=== PATIENT | male | born 1945 ===

== ENCOUNTER 2018-06-25 10:11 | Emergency (ER) | payer MEDICARE, MEDICAID ==
[2018-06-25] MEDS ORDERED: NS 0.9% 1000 ML* 1,000 ML IV ONE (10:38)
--- NOTE | 2018-06-25 10:50 | ED ---
Complex/Multi-Sys Presentation - HPI Summary HPI Summary: This is scribe Jose Angel Henderson documenting for attending Kirill Schwarz MD, MD. LEVEL 5 Caveat: Patient is alert but not oriented. Unresponsive to questions. This patient is a 73 year old M BIBA to [facility] with a chief complaint of back pain and neck pain. The ED report from the [facility] was that he isnt acting like himself. He has a PMHx of HIV, BPH, constipation, CAD, hypothyroidism, dementia, HTN, and Parkinsons. I, Dr. Schwarz, personally performed the services described in this documentation as scribed in my presence, and it is both accurate and complete. - History Of Current Complaint Chief Complaint: EDExtremityLower Hx Obtained From: EMS, Medical Records Hx From Patient Unobtainable Due To: Dementia Associated Signs And Symptoms: Positive: Back Pain, Other - Leg pain. "Isn't acting like himself." - Allergies/Home Medications Allergies/Adverse Reactions: Allergies Allergy/AdvReac Type Severity Reaction Status Date / Time bupropion [From Zyban] Allergy Unknown Verified 06/25/18 14:17 Reaction Details cyclobenzaprine Allergy Unknown Verified 06/25/18 14:17 [From Flexeril] Reaction Details Home Medications: Home Medications Acetaminophen [Acetaminophen Extra Strength] 1,000 mg PO TID 06/25/18 [History Confirmed 06/25/18] Amantadine CAP* [Symmetrel CAP*] 100 mg PO QPM 06/25/18 [History Confirmed 06/25] Amantadine CAP* [Symmetrel CAP*] 200 mg PO QAM 06/25/18 [History Confirmed 06/25] Aspirin EC TAB* [Ecotrin EC Low Dose 81 MG*] 81 mg PO DAILY 06/25/18 [History Confirmed 06/25/18] Baclofen TAB* [Lioresal TAB*] 10 mg PO BID 06/25/18 [History Confirmed 06/25/18] Carbidopa/Levodop 25/100 MG(*) [Sinemet 25/100 TAB(*)] 2.5 tab PO QPM 06/25/18 [ History Confirmed 06/25/18] Carbidopa/Levodop 25/100 MG(*) [Sinemet 25/100 TAB(*)] 3.5 tab PO 1200 06/25/18 [History Confirmed 06/25/18] Carbidopa/Levodop 25/100 MG(*) [Sinemet 25/100 TAB(*)] 3.5 tab PO 1700 06/25/18 [History Confirmed 06/25/18] Carbidopa/Levodop 25/100 MG(*) [Sinemet 25/100 TAB(*)] 4 tab PO QAM 06/25/18 [ History Confirmed 06/25/18] Cholecalciferol (Vitamin D3) [Vitamin D3] 2,000 unit PO QAM 06/25/18 [History Confirmed 06/25/18] Fenofibrate(NF) [Tricor(NF)] 145 mg PO QAM 06/25/18 [History Confirmed 06/25/18] Furosemide TAB* [Lasix TAB*] 20 mg PO QAM 06/25/18 [History Confirmed 06/25/18] Gabapentin CAP(*) [Neurontin 300 CAP(*)] 300 mg PO TID 06/25/18 [History Confirmed 06/25/18] Levothyroxine TAB* [Synthroid TAB*] 100 mcg PO QAM 06/25/18 [History Confirmed 06/25/18] Polyethylene Glycol 3350* [Miralax*] 17 gm PO DAILY 06/25/18 [History Confirmed 06/25/18] Raltegravir* [Isentress*] 400 mg PO BID 06/25/18 [History Confirmed 06/25/18] Senna/Docusate (NF) [Sennokot-S] 2 tab PO BID 06/25/18 [History Confirmed ] PMH/Surg Hx/FS Hx/Imm Hx Cardiovascular History: Reports: Hx Hypertension - CONTROL WITH MEDICATION GI History: Reports: Other GI Disorders - constipation History: Reports: Other Problems/Disorders Musculoskeletal History: Reports: Hx Arthritis, Hx Back Problems, Hx Orthopedic Injury - Rib fx, Other Musculoskeletal History - LEFT TOE PAIN,R/T NAIL GROWTH Sensory History: Reports: Hx Vision Problem - can't see well, Hx Hearing Aid - at home, Hx Hearing Problem Denies: Hx Contacts or Glasses, Hx Eye Injury, Hx Eye Prosthesis, Other Sensory Impairments Comment Only: Hx Cataracts - doesn't know, Hx Glaucoma - doesn't know, Hx Macular Degeneration - doesn't know Opthamlomology History: Reports: Hx Vision Problem - can't see well Denies: Hx Contacts or Glasses, Hx Eye Injury, Hx Eye Prosthesis, Other Sensory Impairments Comment Only: Hx Cataracts - doesn't know, Hx Glaucoma - doesn't know, Hx Macular Degeneration - doesn't know Neurological History: Reports: Other Neuro Impairments/Disorders - PARKINSONS - Surgical History Surgery Procedure, Year, and Place: 1985 BACK SURGERY, [facility]. Umbilical Hernia repair 2012 Hx Anesthesia Reactions: No Infectious Disease History: No Infectious Disease History: Reports: Hx Hepatitis - HEPATITIS C, Hx Human Immunodeficiency Virus (HIV) Denies: Hx Shingles, Hx Tuberculosis, Traveled Outside the [place] in Last 30 Days - Family History Known Family History: Positive: Unknown - Due to Level 5 Caveat: Dementia and unresponsive to questions. - Social History Alcohol Use: None Substance Use Type: Reports: None Smoking Status (MU): Unknown if Ever Smoked Review of Systems Positive: Other - Back pain and leg pain. Neurological: Other - "Isn't acting like himself" All Other Systems Reviewed And Are Negative: No Physical Exam - Summary Physical Exam Summary: LEVEL 5 CAVEAT: Completion of physical exam limited due to dementia and patient being unresponsive to questions. VITAL SIGNS: Reviewed. GENERAL: Patient is a well-developed and nourished elderly male MALE who is lying comfortable in the stretcher. Patient is not in any acute respiratory distress. HEAD AND FACE: No signs of trauma. No ecchymosis, hematomas or skull depressions. No sinus tenderness. EYES: PERRLA, EOMI x 2, No injected conjunctiva, no nystagmus. EARS: Hearing grossly intact. Ear canals and tympanic membranes are within normal limits. MOUTH: Mouth is dry. NECK: Supple, trachea is midline, no adenopathy, no JVD, no carotid bruit, no c- spine tenderness, neck with full ROM. CHEST: Symmetric, no tenderness at palpation LUNGS: Clear to auscultation bilaterally. No wheezing or crackles. CVS: Regular rate and rhythm, S1 and S2 present, no murmurs or gallops appreciated. ABDOMEN: Abdominal hernia that is not reducing. Pain grimaces when trying to reduce it. Hyperactive bowel sounds EXTREMITIES: FROM in all major joints, no edema, no cyanosis or clubbing. NEURO: Alert and non-oriented. Patient is non-verbal. SKIN: Dry and warm Triage Information Reviewed: Yes Vital Signs On Initial Exam: Initial Vitals Temp Pulse Resp BP Pulse Ox 98.8 F 50 18 161/75 96 06/25/18 10:15 06/25/18 10:15 06/25/18 10:15 06/25/18 10:15 06/25/18 10:15 Vital Signs Reviewed: Yes Diagnostics - Vital Signs Vital Signs Temp Pulse Resp BP Pulse Ox 06/25/18 10:15 98.8 F 50 18 161/75 96 - Laboratory Result Diagrams: 06/25/18 11:06 06/25/18 11:06 Lab Statement: Any lab studies that have been ordered have been reviewed, and results considered in the medical decision making process. - Radiology Abdomen X-Ray Radiology Interpretation Completed By: Radiologist - Taken at 11:52. NONSPECIFIC BOWEL GAS PATTERN. ED Physician has reviewed this imaging report. - CT Abdomen/Pelvis CT CT Interpretation Completed By: Radiologist - 14:25. 1. CHOLELITHIASIS. 2. FATTY INFILTRATION OF THE LIVER. ED Physician has reviewed this report. - EKG No standard instances Cardiac Rate: Bradycardia EKG Rhythm: Sinus Rhythm EKG Interpretation: Taken at 11:00. Diffuse ST abnormality. EKG unchanged from 04/02/2018. Complex Multi-Symp Course/Dx Assessment/Plan: This patient is a 73-year-old male who was transferred from [facility] with chief complaint the patient is not acting right, possibly back pain, possibly neck pain this information was given by EMS. There is no available packet from the [facility] in order to find out what was a complaint for the patient. The patient has Parkinsons disease and dementia and therefore he is unable to give any history at this point when I ask him if he has any pain in his hip abdominal pain and back pain. In the physical exam, it seems that the patient has a ventral hernia, and I tried to reduce it however I was not successful. At this time I contacted surgery, I spoke with Dr. Angela who requested a full workup including an abdominopelvic CT. I do not think that the patient would be able to drink the contrast swallow the contrast he has a protruding tongue and this will increase the risk for aspiration. Therefore, I would place an NG tube and give the contrast through the NG tube. I explained the patient the procedure of the NG tube however I don t think the patient understands. Abdominal x-ray impression: Nonspecific bowel gas pattern. Blood test results without any significant abnormality except for slight anemia, glucose 131, bilirubin 1.5. Urinalysis is negative for UTI. Abdomen x-ray impression: Nonspecific bowel gas pattern. Abdominopelvic CT impression: Cholelithiasis, fatty infiltration of the liver, 0.9 cm low attenuation is splenic lesion. This is likely incidental and is most likely at small cyst or cyst hemangioma. Atherosclerosis. Therefore she is a have not found any abnormality the patient will be transferred [facility]. Patient is hemodynamically stable alert and oriented 3. - Diagnoses Provider Diagnoses: Cholelithiasis, Fatty liver - Physician Notifications Discussed Care Of Patient With: Rogelio Angela - Surgery Time Discussed With Above Provider: 10:45 Instructed by Provider To: Other - Recommended a CAT scan Discharge - Sign-Out/Discharge Documenting (check all that apply): Patient Departure - D/C - Discharge Plan Condition: Stable Disposition: HOME Patient Education Materials: Biliary Colic (ED), Non-Alcoholic Fatty Liver Disease (ED) Referrals: Russell Beasley MD [Primary Care Provider] - 3 Days Additional Instructions: FOLLOW UP WITH YOUR PRIMARY CARE PROVIDER WITHIN ONE WEEK FOR HIGH BLOOD PRESSURE NOTED TODAY. RETURN TO THE ED FOR ANY WORSENING OR NEW SYMPTOMS. Consult Consult: Consulted with Cortney Snow N.P. from Surgery at 12:20. She does not think he has an incarcerated hernia.
[2018-06-25 11:28] LABS: ABS Basophils 0 10^3/ul (0-0.2); ABS Eosinophils 0 10^3/ul (0-0.6); ABS Lymphocytes 0.9 10^3/ul (1.0-4.8); ABS Monocytes 0.5 10^3/ul (0-0.8); ABS Neutrophils 3.2 10^3/ul (1.5-7.7); ABS Nucleated RBC 0 10^3/ul; Eosinophil % 0.3 % (0-6); Hematocrit 41 % (42-52); Hemoglobin 13.8 g/dl (14.0-18.0); Lymphocyte % 19.9 % (25-47); Mean Corpuscular HGB Conc 34 g/dl (31-36); Mean Corpuscular Hemoglobin 32 pg (27-31); Mean Corpuscular Volume 95 fL (80-94); Mean Platelet Volume 9.9 um3 (7.4-10.4); Nucleated Red Blood Cells % 0.1; Platelet Count 219 10^3/ul (150-450); Red Blood Count 4.29 10^6/ul (4.00-5.40); Red Cell Distribution Width 13 % (10.5-15); White Blood Count 4.7 10^3/ul (3.5-10.8)
[2018-06-25 11:51] LABS: EGFR Non-African American 62.6 (>60)
--- NOTE | 2018-06-25 11:55 | RAD ---
HISTORY: Abdominal pain COMPARISONS: None VIEWS: Frontal and left lateral decubitus views of the abdomen. FINDINGS: BOWEL: There is a nonspecific bowel gas pattern, with nondilated small bowel gas noted. A gastric tube is noted with the tip in a prepyloric position. CALCULI: There are no abnormal calculi. BONES AND SOFT TISSUES: There are no osseous abnormalities. OTHER FINDINGS: The lung bases are clear. There is no subphrenic gas. IMPRESSION: NONSPECIFIC BOWEL GAS PATTERN.
[2018-06-25] MEDS ORDERED: Iohexol 300* (CONTRAST) 10 ML SDV IV ONE (13:22)
[2018-06-25 14:04] LABS: Urine Appearance Clear; Urine Blood Negative (Negative); Urine Color Yellow; Urine Ketones Trace (Negative); Urine Protein Negative (Negative); Urine Specific Gravity 1.014 (1.010-1.030); Urine Urobilinogen Positive (Negative)
--- NOTE | 2018-06-25 14:29 | RAD ---
CLINICAL HISTORY: Abdominal pain COMPARISON: March 25, 2015 TECHNIQUE: Multiple contiguous axial CT scans were obtained of the abdomen and pelvis after the administration of intravenous contrast. Coronal and sagittal multiplanar reformations are submitted for review. Oral contrast was administered. Delayed images were obtained through the abdomen. FINDINGS: LUNG BASES: The lung bases are clear. LIVER: The liver is diffusely low in attenuation compared to the spleen. There are no focal hepatic parenchymal masses. BILE DUCTS: There is no intrahepatic or extrahepatic biliary dilatation. GALLBLADDER: Multiple gallstones are noted. There is no pericholecystic inflammatory change. PANCREAS: The pancreas is normal, without mass or ductal dilatation. SPLEEN: There is a low-attenuation lesion of the spleen superiorly. This measures 0.9 cm in size and is smoothly circumscribed. UPPER GI TRACT: Evaluation of the gastrointestinal tract is limited by incomplete gastric distention. There is a small sliding hiatal hernia. A gastric tube is noted with the tip in the stomach. SMALL BOWEL AND MESENTERY: The small bowel is normal in contour, course, and caliber. There is no obstruction or dilatation. COLON: The colon is normal in contour, course, caliber. There is no pericolonic inflammatory change. ADRENALS: Normal bilaterally. KIDNEYS: Simple renal cysts are noted bilaterally. BLADDER: The bladder is collapsed around a Griffith catheter PELVIC ORGANS: The prostate gland is normal. The seminal vesicles are symmetric. AORTA: There is calcific atherosclerotic disease of the abdominal aorta and its branches, without aneurysmal dilatation IVC: Unremarkable LYMPH NODES: There is no lymphadenopathy by size criteria. ABDOMINAL WALL: There is a fat-containing right inguinal hernia. 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 Mild degenerative changes are noted. OTHER: None IMPRESSION: 1. CHOLELITHIASIS. 2. FATTY INFILTRATION OF THE LIVER. 3. 0.9 CM LOW-ATTENUATION SPLENIC LESION. THIS IS LIKELY INCIDENTAL AND IS MOST LIKELY A SMALL CYST VERSUS HEMANGIOMA. 4. ATHEROSCLEROSIS.
[2018-06-25 18:11] VITALS: BP 176/97
== END 2018-06-25 18:12 | disposition home or self-care (01) ==
LOC: ED 10:11
DX: K80.20 Calculus of gallbladder without cholecystitis without obstruction (principal); K76.0 Fatty (change of) liver, not elsewhere classified; R00.1 Bradycardia, unspecified; G20 Parkinson's disease; F02.80 Dementia in other diseases classified elsewhere, unspecified severity, without behavioral disturbance, psychotic disturbance, mood disturbance, and anxiety; Z21 Asymptomatic human immunodeficiency virus [HIV] infection status; I25.10 Atherosclerotic heart disease of native coronary artery without angina pectoris; E03.9 Hypothyroidism, unspecified; I10 Essential (primary) hypertension; K44.9 Diaphragmatic hernia without obstruction or gangrene; N40.0 Benign prostatic hyperplasia without lower urinary tract symptoms; K59.00 Constipation, unspecified; Z79.899 Other long term (current) drug therapy; Z88.8 Allergy status to other drugs, medicaments and biological substances
CPT/HCPCS: 36415; 74019; 74177; 80053; 81003; 82140; 82150; 82550; 83605; 83690; 83735; 83880; 84484; 85025; 86140; 93005; 99284; Q9967

== ENCOUNTER 2018-07-07 02:54 | Inpatient (IN) | payer MEDICARE, MEDICAID ==
--- NOTE | 2018-07-07 03:21 | ED ---
Altered Mental Status - HPI Summary HPI Summary: 73 year old M BIB EMS from [facility] to [facility] complains of altered mental status since three hours ago. Symptoms aggravated by nothing. Symptoms alleviated by nothing. Patient is shakey and confused. retirement staff report that patient has had incontinence of bladder x3 days. Staff denies fever. - History Of Current Complaint Chief Complaint: EDAltMentalStatus Stated Complaint: AMS Time Seen by Provider: 07/07/18 03:06 Hx Obtained From: Other: - retirement staff Timing: Constant Character: Confusion Aggravating Factor(s): Nothing Alleviating Factor(s): Nothing - Allergies/Home Medications Allergies/Adverse Reactions: Allergies Allergy/AdvReac Type Severity Reaction Status Date / Time bupropion [From Zyban] Allergy Unknown Verified 06/25/18 14:17 Reaction Details cyclobenzaprine Allergy Unknown Verified 06/25/18 14:17 [From Flexeril] Reaction Details PMH/Surg Hx/FS Hx/Imm Hx Previously Healthy: No Endocrine/Hematology History: Denies: Hx Diabetes Cardiovascular History: Reports: Hx Hypertension - CONTROL WITH MEDICATION GI History: Reports: Other GI Disorders - constipation History: Reports: Other Problems/Disorders Musculoskeletal History: Reports: Hx Arthritis, Hx Back Problems, Hx Orthopedic Injury - Rib fx, Other Musculoskeletal History - LEFT TOE PAIN,R/T NAIL GROWTH Sensory History: Reports: Hx Vision Problem - can't see well, Hx Hearing Aid - at home, Hx Hearing Problem Denies: Hx Contacts or Glasses, Hx Eye Injury, Hx Eye Prosthesis, Other Sensory Impairments Comment Only: Hx Cataracts - doesn't know, Hx Glaucoma - doesn't know, Hx Macular Degeneration - doesn't know Opthamlomology History: Reports: Hx Vision Problem - can't see well Denies: Hx Contacts or Glasses, Hx Eye Injury, Hx Eye Prosthesis, Other Sensory Impairments Comment Only: Hx Cataracts - doesn't know, Hx Glaucoma - doesn't know, Hx Macular Degeneration - doesn't know Neurological History: Reports: Hx CVA, Hx Dementia, Other Neuro Impairments/ Disorders - PARKINSONS Psychiatric History: Reports: Hx Depression - Surgical History Surgery Procedure, Year, and Place: 1985 BACK SURGERY, [facility]. Umbilical Hernia repair 2011 Hx Anesthesia Reactions: No Infectious Disease History: Yes Infectious Disease History: Reports: Hx Hepatitis - HEPATITIS C, Hx Human Immunodeficiency Virus (HIV) Denies: Hx Shingles, Hx Tuberculosis, Traveled Outside the [place] in Last 30 Days - Family History Known Family History: Negative: Cardiac Disease, Hypertension - Social History Alcohol Use: None Hx Substance Use: No Substance Use Type: Reports: None Hx Tobacco Use: No Smoking Status (MU): Unknown if Ever Smoked Review of Systems Positive: Other - Shakes. Negative: Fever Positive: incontinence - x3 days Neurological: Other - AMS, confusion All Other Systems Reviewed And Are Negative: Yes Physical Exam - Summary Physical Exam Summary: Appearance: Chronically-ill appearing. He has resting tremor with upper extremity Skin: Warm, dry, no obvious rash Eyes: sclera anicteric, no conjunctival pallor ENT: mucous membranes moist Neck: deferred Respiratory: No signs of respiratory distress Cardiovascular: Appears well perfused, pulses are nml Abdomen: deferred Musculoskeletal: Moving all 4 extremities without obvious discomfort Neurological: He is confused, disoriented. Speech is slurred Psychiatric: affect is normal, does not appear anxious or depressed Triage Information Reviewed: Yes Vital Signs On Initial Exam: Initial Vitals Pulse Resp BP Pulse Ox 107 34 142/94 96 07/07/18 02:57 07/07/18 02:57 07/07/18 02:57 07/07/18 02:57 Vital Signs Reviewed: Yes Diagnostics - Vital Signs Vital Signs Temp Pulse Resp BP Pulse Ox 07/07/18 03:03 101 F 106 20 142/94 98 07/07/18 03:00 105 31 96 07/07/18 02:57 107 34 142/94 96 - Laboratory Result Diagrams: 07/07/18 07:47 07/07/18 11:05 Lab Statement: Any lab studies that have been ordered have been reviewed, and results considered in the medical decision making process. - Radiology CXR Radiology Interpretation Completed By: ED Physician - Suspect left lower lobe infiltrate. There is loss of left hemidiaphragm. There is increased capacity in the retrocardio area. Pending official report. - EKG 0350 Cardiac Rate: Tachycardia - 104 BPM EKG Rhythm: Sinus Tachycardia Altered Mental Statu Course/Dx - Diagnoses Provider Diagnoses: Altered mental status - Provider Notifications Discussed Care Of Patient With: Porfirio Temple Time Discussed With Above Provider: 05:04 Instructed by Provider To: Other - Dr. Temple, hospitalist, agrees to admit patient. Discharge - Sign-Out/Discharge Documenting (check all that apply): Patient Departure - Admit - Discharge Plan Condition: Guarded Disposition: ADMITTED TO [facility] - Billing Disposition and Condition Condition: GUARDED Disposition: Admitted to [facility] - Attestation Statements Document Initiated by Stacyibe: Yes Documenting Scribe: Jami Lagunas Provider For Whom Liane is Documenting (Include Credential): Giovanni Nelson MD Scribe Attestation: IJami, scribed for Giovanni Nelson MD on 07/08/18 at 0214. Scribe Documentation Reviewed: Yes Provider Attestation: The documentation as recorded by the Jami kramer accurately reflects the service I personally performed and the decisions made by me, Giovanni Nelson MD
[2018-07-07 04:17] LABS: ABS Basophils 0 10^3/ul (0-0.2); ABS Eosinophils 0 10^3/ul (0-0.6); ABS Lymphocytes 0.3 10^3/ul (1.0-4.8); ABS Monocytes 0.8 10^3/ul (0-0.8); ABS Neutrophils 12.1 10^3/ul (1.5-7.7); ABS Nucleated RBC 0 10^3/ul; Eosinophil % 0 % (0-6); Hematocrit 37 % (42-52); Hemoglobin 12.5 g/dl (14.0-18.0); Mean Corpuscular HGB Conc 34 g/dl (31-36); Mean Corpuscular Hemoglobin 32 pg (27-31); Mean Corpuscular Volume 92 fL (80-94); Mean Platelet Volume 9.3 um3 (7.4-10.4); Nucleated Red Blood Cells % 0.1; Platelet Count 250 10^3/ul (150-450); Red Blood Count 3.98 10^6/ul (4.00-5.40); Red Cell Distribution Width 14 % (10.5-15); White Blood Count 13.2 10^3/ul (3.5-10.8)
[2018-07-07 04:34] LABS: EGFR Non-African American 34.7 (>60)
[2018-07-07] MEDS ORDERED: cefTRIAXone(*) 1 GM in NS 0.9% 50 ML* 50 ML IVPB ONE (05:04)
[2018-07-07] MEDS ORDERED: Azithromycin IV(*) 500 MG in NS 0.9% 250 ML* 250 ML IVPB ONE (05:04)
[2018-07-07] MEDS ORDERED: NS 0.9% 1000 ML* 700 ML IV ONE (05:15)
[2018-07-07] MEDS: NS 0.9% 1000 ML* 2,000 ML IV ONE ×2 (05:17→11:32)
[2018-07-07] MEDS ORDERED: Melatonin 3 MG TAB PO PRN (05:28)
[2018-07-07] MEDS ORDERED: Ondansetron ODT TAB* 4 MG PO PRN (05:28)
[2018-07-07] MEDS ORDERED: Acetaminophen TAB* 325 MG PO PRN (05:28)
--- NOTE | 2018-07-07 05:32 | HP ---
H&P (Free Text) History and Physical: PCP: Isra Beasley MD Date/Time: 07/07/2018 0500 CC: fever HPI: Mr Amaro is a 73YO male [facility] [place] resident HX HIV, hepatitis C, CAD, CVA, Parkinsonism, HTN, hypertriglyceridemia, hypothyroidism, & PUD who presents AMS/ confusion & fever. Upon my evaluation, he is unable to give a HX and his baseline is uncertain. When asked questions, he raised both hands, flapped his wrists, and made incoherent verbalizations. He appeared in no pain or overt distress. CXR shows a LLL infiltrate. WBCs are 13k. His is tachycardic and tachypneic w/o accessory muscle use or significant work of breathing. PMedHx HIV hepatitis C CAD CVA w/ reportedly chronic R facial droop Parkinsonism HTN hypertriglyceridemia hypothyroidism PUD Ambulatory Orders Tenofovir/Emtricitab 200/300 * [Truvada*] 1 tab PO QAM 10/15/12 Acetaminophen [Acetaminophen Extra Strength] 1,000 mg PO TID 06/25/18 Amantadine CAP* [Symmetrel CAP*] 200 mg PO QAM 06/25/18 Aspirin EC TAB* [Ecotrin EC Low Dose 81 MG*] 81 mg PO DAILY 06/25/18 Baclofen TAB* [Lioresal TAB*] 10 mg PO BID 06/25/18 Carbidopa/Levodop 25/100 MG(*) [Sinemet 25/100 TAB(*)] 2.5 tab PO QPM 06/25/18 Carbidopa/Levodop 25/100 MG(*) [Sinemet 25/100 TAB(*)] 3.5 tab PO 1200 06/25/18 Carbidopa/Levodop 25/100 MG(*) [Sinemet 25/100 TAB(*)] 3.5 tab PO 1700 06/25/18 Carbidopa/Levodop 25/100 MG(*) [Sinemet 25/100 TAB(*)] 4 tab PO QAM 06/25/18 Cholecalciferol (Vitamin D3) [Vitamin D3] 2,000 unit PO QAM 06/25/18 Fenofibrate(NF) [Tricor(NF)] 145 mg PO QAM 06/25/18 Furosemide TAB* [Lasix TAB*] 20 mg PO QAM 06/25/18 Gabapentin CAP(*) [Neurontin 300 CAP(*)] 300 mg PO TID 06/25/18 Levothyroxine TAB* [Synthroid TAB*] 100 mcg PO QAM 06/25/18 Polyethylene Glycol 3350* [Miralax*] 17 gm PO DAILY 06/25/18 Raltegravir* [Isentress*] 400 mg PO BID 06/25/18 Senna/Docusate (NF) [Sennokot-S] 2 tab PO BID 06/25/18 Allergies bupropion [From Zyban] Allergy (Verified 06/25/18 14:17) Unknown Reaction Details cyclobenzaprine [From Flexeril] Allergy (Verified 06/25/18 14:17) Unknown Reaction Details SocHx: former smoker, no alcohol or recreational drugs; resides at [facility]; FamHx: per records: negative for DM, CAD, CVA, & cancer ROS: as above, otherwise reviewed and all were negative vitals: Vital Signs Temp 38.3 C 07/07/18 03:03 Pulse 105 07/07/18 04:28 Resp 27 07/07/18 04:28 BP 148/116 07/07/18 04:28 Pulse Ox 100 07/07/18 04:28 Intake & Output 07/06/18 07/06/18 07/07/18 11:59 23:59 11:59 Weight 90.718 kg Constitutional: NAD, normally developed, overweight male HEENM: atraumatic; sclera/conjunctiva: anicteric/mildly injected OU; hearing: unable to adequately assess; oropharynx: clear, mucosa tacky Neck: soft tissue: no nuchal rigidity; thyroid: normal Pulmonary: diminished L base with scant end-expiratory crackle, fair aeration, no accessory muscle use CV: RR/RR, normal S1S2, no carotid bruit, no jugular venous distention, 2+ B DP/ PT, no edema Abdominal: soft, non-distended, non-tender, no rebound/guarding/rigidity, normoactive bowel sounds, no hepatosplenomegaly or masses, no costovertebral angle tenderness Musculoskeletal: general: grossly intact, non-tender Integumental: normal appearance and texture of exposed skin Psychiatric orientation: alert & awake, unable to accurately determine orientation affect: fatigued mood: cooperative eye contact: fair content: incoherent ? baseline responses: timely insight: unable to assess Testing: Lab Results 07/07/18 07/07/18 07/07/18 Range/Units 04:10 04:10 04:10 WBC 13.2 H (3.5-10.8) 10^3/ul RBC 3.98 L (4.00-5.40) 10^6/ul Hgb 12.5 L (14.0-18.0) g/dl Hct 37 L (42-52) % MCV 92 (80-94) fL MCH 32 H (27-31) pg MCHC 34 (31-36) g/dl RDW 14 (10.5-15) % Plt Count 250 (150-450) 10^3/ul MPV 9.3 (7.4-10.4) um3 Neut % (Auto) 91.9 H (38-83) % Lymph % (Auto) 2.0 L (25-47) % Clay % (Auto) 5.9 (0-7) % Eos % (Auto) 0 (0-6) % Baso % (Auto) 0.2 (0-2) % Absolute Neuts (auto) 12.1 H (1.5-7.7) 10^3/ul Absolute Lymphs (auto) 0.3 L (1.0-4.8) 10^3/ul Absolute Monos (auto) 0.8 (0-0.8) 10^3/ul Absolute Eos (auto) 0 (0-0.6) 10^3/ul Absolute Basos (auto) 0 (0-0.2) 10^3/ul Absolute Nucleated RBC 0 10^3/ul Nucleated RBC % 0.1 Sodium 143 (135-145) mmol/L Potassium 3.3 L (3.5-5.0) mmol/L Chloride 102 (101-111) mmol/L Carbon Dioxide 30 (22-32) mmol/L Anion Gap 11 (2-11) mmol/L BUN 35 H (6-24) mg/dL Creatinine 1.90 H (0.67-1.17) mg/dL Est GFR ( Amer) 42.0 (>60) Est GFR (Non-Af Amer) 34.7 (>60) BUN/Creatinine Ratio 18.4 (8-20) Glucose 133 H (70-100) mg/dL Lactic Acid 1.8 (0.5-2.0) mmol/L Calcium 11.5 H (8.6-10.3) mg/dL Total Bilirubin 1.30 H (0.2-1.0) mg/dL AST 9 L (13-39) U/L ALT 3 L (7-52) U/L Alkaline Phosphatase 87 (34-104) U/L Troponin I 0.03 (<0.04) ng/mL Total Protein 8.2 (6.4-8.9) g/dL Albumin 3.9 (3.2-5.2) g/dL Globulin 4.3 H (2-4) g/dL Albumin/Globulin Ratio 0.9 L (1-3) Procalcitonin (<0.6) ng/mL 07/07/18 Range/Units 04:10 WBC (3.5-10.8) 10^3/ul RBC (4.00-5.40) 10^6/ul Hgb (14.0-18.0) g/dl Hct (42-52) % MCV (80-94) fL MCH (27-31) pg MCHC (31-36) g/dl RDW (10.5-15) % Plt Count (150-450) 10^3/ul MPV (7.4-10.4) um3 Neut % (Auto) (38-83) % Lymph % (Auto) (25-47) % Clay % (Auto) (0-7) % Eos % (Auto) (0-6) % Baso % (Auto) (0-2) % Absolute Neuts (auto) (1.5-7.7) 10^3/ul Absolute Lymphs (auto) (1.0-4.8) 10^3/ul Absolute Monos (auto) (0-0.8) 10^3/ul Absolute Eos (auto) (0-0.6) 10^3/ul Absolute Basos (auto) (0-0.2) 10^3/ul Absolute Nucleated RBC 10^3/ul Nucleated RBC % Sodium (135-145) mmol/L Potassium (3.5-5.0) mmol/L Chloride (101-111) mmol/L Carbon Dioxide (22-32) mmol/L Anion Gap (2-11) mmol/L BUN (6-24) mg/dL Creatinine (0.67-1.17) mg/dL Est GFR ( Amer) (>60) Est GFR (Non-Af Amer) (>60) BUN/Creatinine Ratio (8-20) Glucose (70-100) mg/dL Lactic Acid (0.5-2.0) mmol/L Calcium (8.6-10.3) mg/dL Total Bilirubin (0.2-1.0) mg/dL AST (13-39) U/L ALT (7-52) U/L Alkaline Phosphatase (34-104) U/L Troponin I (<0.04) ng/mL Total Protein (6.4-8.9) g/dL Albumin (3.2-5.2) g/dL Globulin (2-4) g/dL Albumin/Globulin Ratio (1-3) Procalcitonin 12.7 H (<0.6) ng/mL ECG, personally reviewed: sinus tachycardia rate 104, ST depressions V3-6 & I, diffuse T-wave inversions; new compared to 06/25/2018 CXR, personally reviewed: LLL infiltrate Impression: 73M HX HIV, hepatitis C, CAD, CVA, Parkinsonism, HTN, hypertriglyceridemia, hypothyroidism, & PUD presents from [facility] [place] with severe sepsis (fever, leukocytosis, tachypnea, tachycardia, & RENETTA) 2nd LLL pneumonia DIAGNOSIS & PLAN Primary severe sepsis (fever, leukocytosis, tachypnea, tachycardia, & RENETTA) 2nd LLL pneumonia : IV azithromycin & ceftriaxone : IVFs NS 30mg/kg followed by 85cc/hr LR : blood & sputum CXs : 0 & 6h procalcitonin : awaiting UA : supplemental oxygen : supportive care Secondary HIV : continue tenofovir/emtricitab & raltegravir hepatitis C CAD : continue aspirin HX CVA : continue aspirin Parkinsonism : continue amantadine & carbi/levodopa HTN : trend, hold furosemide hypertriglyceridemia : continue fenofibrate hypothyroidism : continue levothyroxine PUD : omeprazole Admission Rational: Inpatient as without the above interventions the risk of impending adverse outcome is unacceptably high; inappropriate for the outpatient setting DVTp: SCDs & heparin SQ Code Status: HCP: sonRuss [phone] Critical Care time: 55minutes with >50% spent at the bedside obtaining a history , performing the examination, advising of diagnosis & treatment options along with risks/benefits/reasoning; remainder spent discussing with ER MD, reviewing labs and radiology exams
[2018-07-07] MEDS ORDERED: NS 0.9% 1000 ML* 1,000 ML IV ONE (07:48)
[2018-07-07 08:12] LABS: ABS Basophils 0 10^3/ul (0-0.2); ABS Eosinophils 0 10^3/ul (0-0.6); ABS Lymphocytes 0.4 10^3/ul (1.0-4.8); ABS Monocytes 0.5 10^3/ul (0-0.8); ABS Neutrophils 10.4 10^3/ul (1.5-7.7); ABS Nucleated RBC 0 10^3/ul; Eosinophil % 0 % (0-6); Hematocrit 37 % (42-52); Hemoglobin 12.3 g/dl (14.0-18.0); Lymphocyte % 3.4 % (25-47); Mean Corpuscular HGB Conc 33 g/dl (31-36); Mean Corpuscular Hemoglobin 32 pg (27-31); Mean Corpuscular Volume 95 fL (80-94); Mean Platelet Volume 9.9 um3 (7.4-10.4); Nucleated Red Blood Cells % 0; Platelet Count 263 10^3/ul (150-450); Red Blood Count 3.89 10^6/ul (4.00-5.40); Red Cell Distribution Width 14 % (10.5-15); White Blood Count 11.3 10^3/ul (3.5-10.8)
[2018-07-07 08:17] LABS: INR 1.28 (0.77-1.02)
[2018-07-07] MEDS ORDERED: Vancomycin per Pharmacy* NOTE FOLLOW UP PRN (08:32)
[2018-07-07] MEDS ORDERED: NS 0.9% 1000 ML* 2,000 ML IV ONE (08:33)
--- NOTE | 2018-07-07 08:33 | PN ---
Sepsis Event Evaluation Date of Evaluation: 07/07/18 Time of Evaluation: 08:28 Current Stage of Sepsis: Severe Sepsis Vital Signs - Last 12 Hours: Vital Signs - 12 hr Temp Pulse Resp BP Pulse Ox 07/07/18 06:28 103 164/113 100 07/07/18 06:00 100 21 100 07/07/18 05:58 100 21 179/115 100 07/07/18 05:28 101 21 172/114 99 07/07/18 05:00 107 25 100 07/07/18 04:58 106 22 151/127 100 07/07/18 04:28 105 27 148/116 100 07/07/18 04:00 103 20 100 07/07/18 03:58 103 18 136/93 99 07/07/18 03:27 116 21 142/105 79 07/07/18 03:03 101 F 106 20 142/94 98 07/07/18 03:00 105 31 96 07/07/18 02:57 107 34 142/94 96 Lactic Acid: 07/07/18 04:10 Lactic Acid 1.8 - Cardiopulmonary Exam Capillary Refill: Immediate Respiratory: Symmetrical Chest Expansion and Respiratory Effort Cardiovascular: NL Sounds; No Murmurs; No JVD - Peripheral Pulse Exam Radial Pulses: Bilateral Normal Pedal Pulses: Bilateral Normal Posterior Tibial Pulse: Bilateral Normal Femoral Pulses: Bilateral Normal Popliteal Pulses: Bilateral Normal - Skin Exam Skin Exam: Normal Turgor - Myla Coma Scale Best Eye Response: 3 - To Speech Best Motor Response: 5 - Purposeful Movement Best Verbal Response: 4 - Confused Coma Scale Total: 12 Assess/Plan/Problems-Billing Assessment: Status and Disposition: 73 year old man with pneumonia and severe sepsis. Lactic acid initially normal, then at 830 AM patient found to deteriorate despite receiving antibiotics, fluids, etc. HR > 130; RR ~ 40 --> urgent transfer to ICU done patient appearing more stable, but lactic acid now > 6... Repeat 2L bolus and repeat lactic acid in 3 hours. Added vancomycin to antibiotic regimen cultures drawn and pending see above for sepsis related PE and considerations. following closely. .
[2018-07-07 08:34] LABS: EGFR Non-African American 37.9 (>60)
--- NOTE | 2018-07-07 08:37 | PN ---
Sepsis Event Evaluation Date of Evaluation: 07/07/18 Time of Evaluation: 11:00 Current Stage of Sepsis: Severe Sepsis Vital Signs - Last 12 Hours: Vital Signs - 12 hr Temp Pulse Resp BP Pulse Ox 07/07/18 06:28 103 164/113 100 07/07/18 06:00 100 21 100 07/07/18 05:58 100 21 179/115 100 07/07/18 05:28 101 21 172/114 99 07/07/18 05:00 107 25 100 07/07/18 04:58 106 22 151/127 100 07/07/18 04:28 105 27 148/116 100 07/07/18 04:00 103 20 100 07/07/18 03:58 103 18 136/93 99 07/07/18 03:27 116 21 142/105 79 07/07/18 03:03 101 F 106 20 142/94 98 07/07/18 03:00 105 31 96 07/07/18 02:57 107 34 142/94 96 Lactic Acid: 07/07/18 04:10 Lactic Acid 1.8 - Cardiopulmonary Exam Capillary Refill: Immediate Respiratory: Symmetrical Chest Expansion and Respiratory Effort, - - tyachypnea noted Cardiovascular: NL Sounds; No Murmurs; No JVD - Peripheral Pulse Exam Radial Pulses: Bilateral Normal Pedal Pulses: Bilateral Normal Posterior Tibial Pulse: Bilateral Normal Femoral Pulses: Bilateral Normal Popliteal Pulses: Bilateral Normal - Skin Exam Skin Exam: Normal Turgor - Myla Coma Scale Best Eye Response: 4 - Spontaneous Best Motor Response: 4 - Withdraws Best Verbal Response: 4 - Confused Coma Scale Total: 12 Assess/Plan/Problems-Billing . Assessment: 73 yo man with LLL S. Pneumo pneumonia and resultant severe sepsis Status and Disposition: 73 year old man with pneumonia and severe sepsis. Lactic acid initially normal, then at 830 AM patient found to deteriorate despite receiving antibiotics, fluids, etc. HR > 130; RR ~ 40 --> urgent transfer to ICU ; lactic acid was > 6... Repeated 2L bolus and repeat lactic acid was NORMAL. IV metoprolol given for hypertension and tachycardia and patient appears MUCH improved with RR < 20 and HR ~ 60-70 Added vancomycin to antibiotic regimen cultures drawn and still pending see above for sepsis related PE and considerations. following closely. .
[2018-07-07] MEDS ORDERED: Metoprolol Tartrate IV* 1 MG/ML 5 ML VIAL IV STA (08:52)
[2018-07-07] MEDS ORDERED: Morphine INJ* 2 MG/ML 1 ML SYRINGE (TWO MG - NEW SYRINGE VERSION) IV STA (08:53)
[2018-07-07] MEDS ORDERED: Vancomycin(*) 1,000 MG in NS 0.9% 250 ML* 250 ML IVPB ONE (09:00)
[2018-07-07] MEDS: Heparin VIAL(*) 5000 UNITS/ML VIAL (FIVE THOUSAND) SUBCUT SCH ×3 (09:22→21:20)
[2018-07-07] MEDS: Levothyroxine TAB* 100 MCG TAB PO SCH (10:06)
[2018-07-07] MEDS: Omeprazole CAP* 20 MG PO SCH (10:06)
[2018-07-07] MEDS: Amantadine CAP* 100 MG PO SCH (10:06)
[2018-07-07] MEDS: Carbidopa/Levodop 25/100 MG TAB(*) PO SCH ×3 (10:07→17:27)
[2018-07-07] MEDS: Baclofen TAB* 10 MG PO SCH ×2 (10:07→20:36)
[2018-07-07] MEDS: Polyethylene Glycol 3350* 17 GM PACKET PO SCH (10:07)
[2018-07-07] MEDS: Aspirin EC TAB* 81 MG TAB.EC PO SCH (10:07)
[2018-07-07] MEDS: Tenofovir/Emtricitab 200/300 * TAB PO SCH (10:07)
[2018-07-07] MEDS: Raltegravir* 400 MG TAB PO SCH ×2 (10:07→20:37)
[2018-07-07] MEDS: Docusate CAP* 100 MG PO SCH ×2 (10:07→20:36)
[2018-07-07] MEDS: CMC:Fenofibrate(NF) 145 MG TAB PO SCH (10:07)
[2018-07-07] MEDS: Gabapentin CAP(*) 300 MG PO SCH ×3 (10:07→20:37)
[2018-07-07] MEDS: Senna TAB PO SCH ×2 (10:07→20:37)
--- NOTE | 2018-07-07 11:27 | RAD ---
Indication: Fever. Altered mental status. Comparison: June 25, [address] and April 02, 2015 chest radiograph. Technique: Upright AP 0445 hours Report: Alveolar consolidation at the LEFT lung base with partial obscuration of the LEFT diaphragm and heart margin. Potential small LEFT pleural effusion. Upper normal heart size accounting for leftward rotation. Unremarkable mediastinal contours and central pulmonary vasculature accounting for leftward rotation. IMPRESSION: #. LEFT basilar airspace consolidation concerning for pneumonia. R0
[2018-07-07 14:26] LABS: Urine Red Blood Cell 3+(>10/hpf) (Absent); Urine White Blood Cell 3+(>20/hpf) (Absent)
[2018-07-07 14:27] LABS: Urine Color Red
[2018-07-07 14:28] LABS: Urine Appearance Cloudy
[2018-07-07 14:30] LABS: Urine Specific Gravity 1.017 (1.010-1.030)
[2018-07-07 14:35] LABS: EGFR Non-African American 44.9 (>60)
[2018-07-07] MEDS: Vancomycin(*) 1,000 MG in NS 0.9% 250 ML* 250 ML IVPB SCH (17:31)
[2018-07-07] MEDS ORDERED: Carbidopa/Levodop 25/100 MG TAB(*) PO SCH (18:00)
[2018-07-07] MEDS ORDERED: Piperacillin/Tazobac ADVAN(*) 3.375 GM in NS 0.9% 100 ML* 100 ML IVPB ONE (18:23)
[2018-07-07] MEDS ORDERED: Zosyn per Pharmacy* NOTE FOLLOW UP SCH (19:00)
[2018-07-07] MEDS: Morphine INJ* 2 MG/ML 1 ML SYRINGE (TWO MG - NEW SYRINGE VERSION) IV PRN (22:34)
[2018-07-07] MEDS: ZOSYN 3.375 GM Q8H per EXTENDED INFUSION IVPB SCH ×2 (23:49)
[2018-07-08] MEDS: Morphine INJ* 2 MG/ML 1 ML SYRINGE (TWO MG - NEW SYRINGE VERSION) IV PRN (04:37)
[2018-07-08] MEDS ORDERED: cefTRIAXone VIAL(*) 1,000 MG in NS 0.9% 50 ML* 50 ML IVPB SCH (05:00)
[2018-07-08] MEDS: Acetaminophen SUPP* 650 MG SUPP PR PRN (05:02)
[2018-07-08] MEDS: Azithromycin IV(*) 500 MG in NS 0.9% 250 ML* 250 ML IVPB SCH (05:02)
[2018-07-08 05:57] LABS: EGFR Non-African American 51.1 (>60)
[2018-07-08] MEDS: Heparin VIAL(*) 5000 UNITS/ML VIAL (FIVE THOUSAND) SUBCUT SCH ×3 (06:08→21:32)
[2018-07-08] MEDS: Vancomycin(*) 1,000 MG in NS 0.9% 250 ML* 250 ML IVPB SCH ×2 (06:08→17:15)
[2018-07-08] MEDS: Levothyroxine TAB* 100 MCG TAB PO SCH (06:11)
[2018-07-08] MEDS: Omeprazole CAP* 20 MG PO SCH (06:11)
[2018-07-08] MEDS: ZOSYN 3.375 GM Q8H per EXTENDED INFUSION IVPB SCH ×4 (08:11→16:08)
[2018-07-08] MEDS: Baclofen TAB* 10 MG PO SCH ×2 (09:04→21:32)
[2018-07-08] MEDS: Aspirin EC TAB* 81 MG TAB.EC PO SCH (09:04)
[2018-07-08] MEDS: Amantadine CAP* 100 MG PO SCH (09:04)
[2018-07-08] MEDS: Gabapentin CAP(*) 300 MG PO SCH ×3 (09:04→21:31)
[2018-07-08] MEDS: Carbidopa/Levodop 25/100 MG TAB(*) PO SCH ×4 (09:04→21:30)
[2018-07-08] MEDS: Docusate CAP* 100 MG PO SCH ×2 (09:05→21:32)
[2018-07-08] MEDS: Raltegravir* 400 MG TAB PO SCH ×2 (09:06→21:41)
[2018-07-08] MEDS: CMC:Fenofibrate(NF) 145 MG TAB PO SCH (09:06)
[2018-07-08] MEDS: Polyethylene Glycol 3350* 17 GM PACKET PO SCH (09:06)
[2018-07-08] MEDS: Tenofovir/Emtricitab 200/300 * TAB PO SCH (09:07)
[2018-07-08] MEDS: Senna TAB PO SCH ×2 (09:07→21:38)
--- NOTE | 2018-07-08 15:54 | PN ---
Subjective Date of Service: 07/08/18 Interval History: Pt seen and examined. Meds and labs reviewed. CC: Fever per nursing staff ROS: Could not be reliably obtained PHYSICAL EXAM: GEN APPEARANCE: Awake, not in acute distress, non-verbal, but nods head appropriately to confirm HEENT: NC/AT, PERRLA, moist oral mucosa, (-) throat erythema NECK: Soft, supple, (-) cervical LAD, (-)JVD HEART: S1S2 WNL, RRR, No MRG CHEST: CTA, BL, GAE, No W/R/R ABD: Soft, ND/NT, NABS 4x Q EXT: No C/C/E SKIN: Warm to touch PSYCH: No active psychosis, hallucinations, depression, SI/HI Objective Active Medications: Acetaminophen (Tylenol Supp*) 650 mg OR Q6H PRN PRN Reason: FEVER/PAIN Last Admin: 07/08/18 05:02 Dose: 650 mg Amantadine HCl (Symmetrel Cap*) 200 mg PO QAM [facility] Last Admin: 07/08/18 09:04 Dose: 200 mg Aspirin (Aspirin Ec Tab*) 81 mg PO DAILY [facility] Last Admin: 07/08/18 09:04 Dose: 81 mg Baclofen (Lioresal Tab*) 10 mg PO BID [facility] Last Admin: 07/08/18 09:04 Dose: 10 mg Carbidopa/Levodopa (Sinemet 25/100 Tab(*)) 2.5 tab PO QPM [facility] Last Admin: 07/07/18 17:28 Dose: Not Given Carbidopa/Levodopa (Sinemet 25/100 Tab(*)) 3.5 tab PO 1200 [facility] Last Admin: 07/08/18 13:13 Dose: 3.5 tab Carbidopa/Levodopa (Sinemet 25/100 Tab(*)) 3.5 tab PO 1700 [facility] Last Admin: 07/07/18 17:27 Dose: Not Given Carbidopa/Levodopa (Sinemet 25/100 Tab(*)) 4 tab PO QAM [facility] Last Admin: 07/08/18 09:04 Dose: 4 tab Docusate Sodium (Colace Cap*) 200 mg PO BID [facility] Last Admin: 07/08/18 09:05 Dose: Not Given Emtricitabine/Tenofovir (Truvada 200/300 Mg*) 1 tab PO QAM [facility]; Protocol Last Admin: 07/08/18 09:07 Dose: 1 tab Fenofibrate (Tricor(Nf)) 145 mg PO QAM [facility]; Protocol Last Admin: 07/08/18 09:06 Dose: 145 mg Gabapentin (Neurontin Cap(*)) 300 mg PO TID [facility] Last Admin: 07/08/18 13:13 Dose: 300 mg Heparin Sodium (Porcine) (Heparin Vial(*)) 5,000 units SUBCUT Q12H [facility] Lactated Ringer's (Lactated Ringers 1000 Ml Bag*) 1,000 mls @ 85 mls/hr IV PER RATE [facility] Last Admin: 07/08/18 00:49 Dose: 85 mls/hr Azithromycin 500 mg/ Sodium (Chloride) 250 mls @ 250 mls/hr IVPB Q24H [facility] Last Admin: 07/08/18 05:02 Dose: 250 mls/hr Vancomycin HCl 1,000 mg/ (Sodium Chloride) 250 mls @ 166.667 mls/hr IVPB Q12H [facility] Last Admin: 07/08/18 06:08 Dose: 166.667 mls/hr Piperacillin Sod/Tazobactam (Sod 3.375 gm/ Sodium Chloride) 100 mls @ 25 mls/ hr IVPB Q8H [facility] Last Admin: 07/08/18 08:11 Dose: 25 mls/hr Levothyroxine Sodium (Synthroid Tab*) 100 mcg PO 0600 [facility] Last Admin: 07/08/18 06:11 Dose: Not Given Melatonin (Melatonin) 3 mg PO BEDTIME PRN; Protocol PRN Reason: Sleep Morphine Sulfate (Morphine Inj ((Syringe))*) 2 mg IV Q3H PRN PRN Reason: SOB/air hunger Last Admin: 07/08/18 04:37 Dose: 2 mg Omeprazole (Prilosec Cap*) 20 mg PO DAILY@0600 [facility] Last Admin: 07/08/18 06:11 Dose: Not Given Ondansetron HCl (Zofran Odt Tab*) 4 mg PO Q6H PRN PRN Reason: n/v Pharmacy Consult (Vancomycin Per Pharmacy*) 1 note FOLLOW UP . PRN PRN Reason: PER PROTOCOL Pharmacy Consult (Zosyn Per Pharmacy*) 1 note FOLLOW UP .ZOSYN PER PHARMACY [facility] Pharmacy Profile Note (Vancomycin Trough Check) 1 note FOLLOW UP 729 ONE Stop: 07/09/18 07:31 Polyethylene Glycol/Electrolytes (Miralax*) 17 gm PO DAILY [facility] Last Admin: 07/08/18 09:06 Dose: Not Given Raltegravir (Isentress*) 400 mg PO BID [facility]; Protocol Last Admin: 07/08/18 09:06 Dose: 400 mg Senna (Senokot Tab*) 2 tab PO BID [facility] Last Admin: 07/08/18 09:07 Dose: Not Given Vital Signs - 8 hr 07/08/18 07/08/18 07/08/18 08:00 08:01 08:37 Temperature 99.3 F 100.1 F Pulse Rate 62 72 Respiratory 26 30 Rate Blood Pressure 162/81 (mmHg) O2 Sat by Pulse 92 91 Oximetry 07/08/18 07/08/18 07/08/18 09:00 10:00 11:06 Temperature 99.0 F Pulse Rate 66 91 84 Respiratory 27 30 20 Rate Blood Pressure 172/119 147/88 (mmHg) O2 Sat by Pulse 94 94 97 Oximetry 07/08/18 07/08/18 13:13 15:43 Temperature Pulse Rate Respiratory 20 18 Rate Blood Pressure (mmHg) O2 Sat by Pulse Oximetry Oxygen Devices in Use Now: Nasal Cannula Result Diagrams: 07/07/18 07:47 07/08/18 05:03 Microbiology and Other Data: Microbiology 07/07/18 09:17 Urine Culture - Preliminary Urine Proteus Mirabilis 07/07/18 04:10 Aerobic Blood Culture - Preliminary Blood Venous Proteus Mirabilis Anaerobic Blood Culture - Preliminary Proteus Mirabilis 07/07/18 05:05 Aerobic Blood Culture - Preliminary Blood Venous Proteus Mirabilis Anaerobic Blood Culture - Preliminary Proteus Mirabilis 07/07/18 08:30 Aerobic Blood Culture - Preliminary Blood Venous No Growth Day 1 Anaerobic Blood Culture - Preliminary No Growth Day 1 07/07/18 09:17 Legionella Urinary Antigen - Final Urine Negative Legionella Antigen Streptococcus pneumoniae Ag Screen - Final Negative S. pneumo Antigen 07/07/18 10:00 Nasal Screen MRSA (PCR) - Final Nasal Mrsa Not Detected Assess/Plan/Problems-Billing . Assessment: 73 yo man with LLL S. Pneumo pneumonia and resultant severe sepsis - Patient Problems (1) Sepsis due to pneumonia Current Visit: Yes Status: Acute Code(s): J18.9 - PNEUMONIA, UNSPECIFIED ORGANISM; A41.9 - SEPSIS, UNSPECIFIED ORGANISM SNOMED Code(s): 57362053 Comment: -Continue Zosyn and Vancomycin as well As Azithromycin, Abx day #1 -Repeat LA is normal at 1.7 -Likely cause of low grade fever this AM, that has improved from a few hours previous -(-)Legionella and S. pneumoniae urine Ag -2 sets of aerobic Blood culture positive for P. mirabilis---awaiting sensitivity data (2) Human immunodeficiency virus Current Visit: No Status: Chronic Comment: -Continue Tenofovir/Emtricitab +Raltegravir (3) HCV (hepatitis C virus) Current Visit: Yes Status: Acute Comment: -Defer with ID and/or PCP as outpt (4) CAD (coronary artery disease) Current Visit: No Status: Chronic Code(s): I25.10 - ATHSCL HEART DISEASE OF [place] CORONARY ARTERY W/O ANG PCTRS SNOMED Code(s): 47786363 Comment: #with CVA, hx of: -Continue ASA (5) Parkinsonism Current Visit: Yes Status: Acute Code(s): G20 - PARKINSON'S DISEASE SNOMED Code(s): 25807532 Comment: -Continue Amantadine and Sinemet (6) Hypertriglyceridemia Current Visit: Yes Status: Acute Code(s): E78.1 - PURE HYPERGLYCERIDEMIA SNOMED Code(s): 774863516 Comment: -Continue Fenofibrate (7) Hypothyroidism Current Visit: Yes Status: Acute Code(s): E03.9 - HYPOTHYROIDISM, UNSPECIFIED SNOMED Code(s): 48407868 Comment: -Continue Levothyroxine (8) DVT prophylaxis Current Visit: No Status: Acute Priority: Medium Onset Date: 03/25/15 Code(s): DGT3065 - SNOMED Code(s): 392577185 Comment: -Will change Heparin SQ frequency to q12H Status and Disposition: -For transfer to /Tele -For PT eval
[2018-07-09] MEDS: ZOSYN 3.375 GM Q8H per EXTENDED INFUSION IVPB SCH ×6 (01:00→15:59)
[2018-07-09] MEDS ORDERED: NS 0.9% 250 ML* 250 ML ONE ×2 (05:53)
[2018-07-09] MEDS: Omeprazole CAP* 20 MG PO SCH (06:09)
[2018-07-09] MEDS: Levothyroxine TAB* 100 MCG TAB PO SCH (06:09)
[2018-07-09] MEDS: Vancomycin(*) 1,000 MG in NS 0.9% 250 ML* 250 ML IVPB SCH (06:09)
[2018-07-09] MEDS: Azithromycin IV(*) 500 MG in NS 0.9% 250 ML* 250 ML IVPB SCH (06:09)
[2018-07-09 07:08] LABS: ABS Basophils 0 10^3/ul (0-0.2); ABS Eosinophils 0.1 10^3/ul (0-0.6); ABS Lymphocytes 0.6 10^3/ul (1.0-4.8); ABS Monocytes 1.2 10^3/ul (0-0.8); ABS Neutrophils 6.9 10^3/ul (1.5-7.7); ABS Nucleated RBC 0 10^3/ul; Eosinophil % 0.8 % (0-6); Hematocrit 31 % (42-52); Hemoglobin 10.5 g/dl (14.0-18.0); Lymphocyte % 7.2 % (25-47); Mean Corpuscular HGB Conc 34 g/dl (31-36); Mean Corpuscular Hemoglobin 32 pg (27-31); Mean Corpuscular Volume 93 fL (80-94); Mean Platelet Volume 9.9 um3 (7.4-10.4); Nucleated Red Blood Cells % 0; Platelet Count 211 10^3/ul (150-450); Red Blood Count 3.29 10^6/ul (4.00-5.40); Red Cell Distribution Width 14 % (10.5-15); White Blood Count 8.8 10^3/ul (3.5-10.8)
[2018-07-09] MEDS ORDERED: Vancomycin Trough Check NOTE FOLLOW UP ONE ×2 (07:30→17:30)
[2018-07-09] MEDS: Docusate CAP* 100 MG PO SCH ×2 (07:34→20:44)
[2018-07-09] MEDS: Polyethylene Glycol 3350* 17 GM PACKET PO SCH (07:34)
[2018-07-09] MEDS ORDERED: Potassium Chloride LIQUID* 20 MEQ PACKET PO STA (08:47)
[2018-07-09] MEDS ORDERED: Potassium Phosphate IV* 15 MMOLE in NS 0.9% 250 ML* 250 ML IVPB ONE (08:53)
[2018-07-09] MEDS ORDERED: D5W 1/2 NS 1000 ML BAG* 1,000 ML IV SCH (09:00)
[2018-07-09] MEDS: Baclofen TAB* 10 MG PO SCH ×2 (10:27→20:44)
[2018-07-09] MEDS: Raltegravir* 400 MG TAB PO SCH ×2 (10:27→20:44)
[2018-07-09] MEDS: Tenofovir/Emtricitab 200/300 * TAB PO SCH (10:27)
[2018-07-09] MEDS: Amantadine CAP* 100 MG PO SCH (10:27)
[2018-07-09] MEDS: Aspirin EC TAB* 81 MG TAB.EC PO SCH (10:27)
[2018-07-09] MEDS: amLODIPine TAB* 5 MG PO SCH (10:27)
[2018-07-09] MEDS: Gabapentin CAP(*) 300 MG PO SCH ×3 (10:28→20:44)
[2018-07-09] MEDS: Senna TAB PO SCH ×2 (10:28→20:44)
[2018-07-09] MEDS: Carbidopa/Levodop 25/100 MG TAB(*) PO SCH ×4 (10:28→20:43)
[2018-07-09] MEDS: Heparin VIAL(*) 5000 UNITS/ML VIAL (FIVE THOUSAND) SUBCUT SCH ×2 (10:28→20:44)
[2018-07-09] MEDS: CMC:Fenofibrate(NF) 145 MG TAB PO SCH (10:28)
[2018-07-09] MEDS ORDERED: Morphine INJ* 2 MG/ML 1 ML SYRINGE (TWO MG - NEW SYRINGE VERSION) IV PRN (12:12)
--- NOTE | 2018-07-09 12:19 | CONS ---
DATE OF CONSULTATION: 07/09/2018. REQUESTING PHYSICIAN: Dr. Hernandez. CONSULTING SERVICE: Infectious Disease. REASON FOR CONSULTATION: Bacteremia. IMPRESSION: 1. Sepsis present on admission, resolved. 2. Encephalopathy present on admission, improving. 3. Proteus bacteremia, resolved and due to cystitis and acute prostatitis as supported by CT evidence of prostate inflammation, elevated PSA, differential diagnosis there does include the possibility of prostate cancer. 4. Left lower lobe pneumonia, question aspiration. 5. Baseline dementia. 6. History of stroke. 7. HIV, on antiretrovirals. 8. Hepatitis C. RECOMMENDATIONS: Continue Zosyn. I will stop his Vancomycin and Azithromycin. Depending on how he does here, consider a swallow evaluation. HISTORY OF PRESENT ILLNESS: This is a 73-year-old man with HIV, looks to be well- controlled, admitted with a change in mental status, the baseline of which includes some dementia. He cannot provide any history which was obtained instead from discussion with Dr. Hernandez and review of medical record. He was brought on the from [facility] with change in mental status there. He had increased oxygen requirement and was febrile. He was tachycardic, tachypneic, and was started on fluids and broad spectrum antibiotics. A chest x-ray showed left lower lobe infiltrate. Blood cultures that were taken at admission came back with proteus mirabilis. His susceptibility data is pending. Follow-up cultures taken later in the day after a dose of antibiotics were negative. His urine culture grew proteus 1 to 10,000 colonies. His urinalysis showed white cells and red cells. The rest of the testing was cancelled due to some abnormalities in the specimen. On admission, he had a creatinine of 1.9; it is down to 1.3 today. He had a lactic acid of 6.5 on admission; it is 1.7. His procalcitonin was 12. His white blood cell count down to 8. Today, he denies pain. Per the nursing staff, there has been no diarrhea. PAST MEDICAL HISTORY: 1. Parkinson's disease. 2. History of stroke. 3. HIV, on antiretroviral, last CD4 count was in the 400 range that we have record of in 2017. 4. Coronary artery disease. 5. Hypertension. 6. Hypertriglyceridemia. 7. Hypothyroidism. 8. Peptic ulcer disease. ALLERGIES: BUPROPION, CYCLOBENZAPRINE. MEDICATIONS: Tylenol, Amantadine, Amlodipine, aspirin, Baclofen, Sinemet, Heparin subcutaneous injection, Fenofibrate, Gabapentin, Levothyroxine, Melatonin, Morphine, Omeprazole, Zofran, Vancomycin, Zosyn, Azithromycin, Raltegravir twice daily, Truvada daily. SOCIAL HISTORY: He resides at [facility]. Past smoker. FAMILY HISTORY: According to his records are negative, he cannot otherwise provide. REVIEW OF SYSTEMS: He is unable to participate. PHYSICAL EXAMINATION: General: He is awake, not in distress. Vital Signs: Temperature 37, heart rate 60, respiratory rate 20, blood pressure 173/96, oxygen saturation 95 percent on 2 liters. Neurologic: He does regard. He does follow some commands and can move all of his extremities, answers some questions. HEENT: There is no conjunctival hemorrhage. Oropharynx without lesions. Neck: Supple without mass. Lymph nodes: There is no cervical, supraclavicular, inguinal, axillary, or epitrochlear lymphadenopathy. Heart: Regular rate and rhythm without murmurs, rubs, or gallops. Lungs: Decreased breath sounds at the bases bilaterally without wheeze or rale. Abdomen: Soft, nontender, nondistended. There are bowel sounds present. Skin: There is no rash or splinter hemorrhages. Musculoskeletal: There is no spine tenderness to palpation or joint synovitis. LABORATORY DATA: White blood cell count 8, hemoglobin 10, platelets 211, creatinine 1.3, bilirubin 1. Please see impressions and recommendations as outline above which I have discussed with Dr. Hernandez. Thank you for asking me to see Mr. Amaro in consultation. [id number]/[facility] #: [id number] [facility]ITALMaritza
[2018-07-09] MEDS: hydrALAZINE IV* 20 MG/ML VIAL IV SLOW PU PRN (13:33)
--- NOTE | 2018-07-09 17:39 | PN ---
Subjective Date of Service: 07/09/18 Interval History: Pt seen and examined. Meds and labs reviewed. CC:N/A ROS: Pt unable to reliably answer 14 point ROS PHYSICAL EXAM: GEN APPEARANCE: Awake, not in acute distress, pt now able to verbalize some concerns but with some difficulty HEENT: NC/AT, PERRLA, moist oral mucosa, (-) throat erythema NECK: Soft, supple, (-) cervical LAD, (-)JVD HEART: S1S2 WNL, RRR, No MRG CHEST: CTA, BL, GAE, No W/R/R ABD: Soft, ND/NT, NABS 4x Q EXT: No C/C/E SKIN: Warm to touch PSYCH: Unable to fully evaluate Objective Active Medications: Acetaminophen (Tylenol Supp*) 650 mg [place] Q6H PRN PRN Reason: FEVER/PAIN Last Admin: 07/08/18 05:02 Dose: 650 mg Amantadine HCl (Symmetrel Cap*) 200 mg PO QAM [facility] Last Admin: 07/09/18 10:27 Dose: 200 mg Amlodipine Besylate (Norvasc Tab*) 5 mg PO DAILY [facility] Last Admin: 07/09/18 10:27 Dose: 5 mg Aspirin (Aspirin Ec Tab*) 81 mg PO DAILY [facility] Last Admin: 07/09/18 10:27 Dose: 81 mg Baclofen (Lioresal Tab*) 10 mg PO BID [facility] Last Admin: 07/09/18 10:27 Dose: 10 mg Carbidopa/Levodopa (Sinemet 25/100 Tab(*)) 3.5 tab PO 1200 [facility] Last Admin: 07/09/18 13:33 Dose: 3.5 tab Carbidopa/Levodopa (Sinemet 25/100 Tab(*)) 3.5 tab PO 1700 [facility] Last Admin: 07/09/18 17:08 Dose: Not Given Carbidopa/Levodopa (Sinemet 25/100 Tab(*)) 4 tab PO QAM [facility] Last Admin: 07/09/18 10:28 Dose: 4 tab Carbidopa/Levodopa (Sinemet 25/100 Tab(*)) 2.5 tab PO 2100 [facility] Last Admin: 07/08/18 21:30 Dose: 2.5 tab Docusate Sodium (Colace Cap*) 200 mg PO BID [facility] Last Admin: 07/09/18 07:34 Dose: Not Given Emtricitabine/Tenofovir (Truvada 200/300 Mg*) 1 tab PO QAM [facility]; Protocol Last Admin: 07/09/18 10:27 Dose: 1 tab Fenofibrate (Tricor(Nf)) 145 mg PO QAM [facility]; Protocol Last Admin: 07/09/18 10:28 Dose: 145 mg Gabapentin (Neurontin Cap(*)) 300 mg PO TID [facility] Last Admin: 07/09/18 13:33 Dose: 300 mg Heparin Sodium (Porcine) (Heparin Vial(*)) 5,000 units SUBCUT Q12HR [facility] Last Admin: 07/09/18 10:28 Dose: 5,000 units Hydralazine HCl (Apresoline Iv*) 10 mg IV SLOW PU Q6H PRN PRN Reason: BLOOD PRESSURE Last Admin: 07/09/18 13:33 Dose: 10 mg Piperacillin Sod/Tazobactam (Sod 3.375 gm/ Sodium Chloride) 100 mls @ 25 mls/ hr IVPB Q8H [facility] Last Admin: 07/09/18 15:59 Dose: 25 mls/hr Dextrose/Sodium Chloride (D5w 1/2 Ns 1000 Ml Bag*) 1,000 mls @ 100 mls/hr IV PER RATE [facility] Stop: 07/09/18 18:59 Last Admin: 07/09/18 09:05 Dose: 100 mls/hr Levothyroxine Sodium (Synthroid Tab*) 100 mcg PO 0600 [facility] Last Admin: 07/09/18 06:09 Dose: 100 mcg Melatonin (Melatonin) 3 mg PO BEDTIME PRN; Protocol PRN Reason: Sleep Morphine Sulfate (Morphine Inj ((Syringe))*) 2 mg IV Q3H PRN PRN Reason: SOB/air hunger Last Admin: 07/09/18 12:18 Dose: 2 mg Omeprazole (Prilosec Cap*) 20 mg PO DAILY@0600 [facility] Last Admin: 07/09/18 06:09 Dose: 20 mg Ondansetron HCl (Zofran Odt Tab*) 4 mg PO Q6H PRN PRN Reason: n/v Pharmacy Consult (Zosyn Per Pharmacy*) 1 note FOLLOW UP .ZOSYN PER PHARMACY [facility] Polyethylene Glycol/Electrolytes (Miralax*) 17 gm PO DAILY [facility] Last Admin: 07/09/18 07:34 Dose: Not Given Raltegravir (Isentress*) 400 mg PO BID [facility]; Protocol Last Admin: 07/09/18 10:27 Dose: 400 mg Senna (Senokot Tab*) 2 tab PO BID [facility] Last Admin: 07/09/18 10:28 Dose: Not Given Vital Signs - 8 hr 07/09/18 07/09/18 07/09/18 10:28 12:03 12:18 Temperature 98.2 F Pulse Rate 57 Respiratory 16 18 16 Rate Blood Pressure 187/86 (mmHg) O2 Sat by Pulse 97 Oximetry 07/09/18 07/09/18 07/09/18 13:29 13:30 13:33 Temperature Pulse Rate Respiratory 16 18 Rate Blood Pressure 178/80 (mmHg) O2 Sat by Pulse Oximetry 07/09/18 07/09/18 07/09/18 15:27 15:50 16:01 Temperature 99.1 F Pulse Rate 59 Respiratory 26 16 Rate Blood Pressure 139/84 (mmHg) O2 Sat by Pulse 93 Oximetry Oxygen Devices in Use Now: Nasal Cannula Result Diagrams: 07/09/18 06:53 07/09/18 06:53 Microbiology and Other Data: Microbiology 07/07/18 09:17 Urine Culture - Preliminary Urine Proteus Mirabilis 07/07/18 04:10 Aerobic Blood Culture - Preliminary Blood Venous Proteus Mirabilis Anaerobic Blood Culture - Preliminary Proteus Mirabilis 07/07/18 05:05 Aerobic Blood Culture - Preliminary Blood Venous Proteus Mirabilis Anaerobic Blood Culture - Preliminary Proteus Mirabilis 07/07/18 08:30 Aerobic Blood Culture - Preliminary Blood Venous No Growth Day 1 Anaerobic Blood Culture - Preliminary No Growth Day 1 07/07/18 09:17 Legionella Urinary Antigen - Final Urine Negative Legionella Antigen Streptococcus pneumoniae Ag Screen - Final Negative S. pneumo Antigen 07/07/18 10:00 Nasal Screen MRSA (PCR) - Final Nasal Mrsa Not Detected Assess/Plan/Problems-Billing . Assessment: 73 yo man with LLL S. Pneumo pneumonia and resultant severe sepsis - Patient Problems (1) Sepsis due to gram-negative UTI Current Visit: Yes Status: Acute Code(s): A41.50 - GRAM-NEGATIVE SEPSIS, UNSPECIFIED; N39.0 - URINARY TRACT INFECTION, SITE NOT SPECIFIED SNOMED Code(s ): 050581409 Comment: -Sepsis likely due to UTI --most likely source is prostatitis and PNA may have been due to aspiration -Continue Zosyn and D/C Vancomycin as well As Azithromycin, Abx day #2 -Repeat LA is normal at 1.7 -Likely cause of low grade fever this AM, that has improved from a few hours previous -(-)Legionella and S. pneumoniae urine Ag -2 sets of aerobic Blood culture positive for P. mirabilis---awaiting sensitivity data (2) Human immunodeficiency virus Current Visit: No Status: Chronic Comment: -Continue Tenofovir/Emtricitab +Raltegravir (3) HCV (hepatitis C virus) Current Visit: Yes Status: Acute Comment: -Defer with ID and/or PCP as outpt (4) CAD (coronary artery disease) Current Visit: No Status: Chronic Code(s): I25.10 - ATHSCL HEART DISEASE OF [place] CORONARY ARTERY W/O ANG PCTRS SNOMED Code(s): 55828609 Comment: #with CVA, hx of: -Continue ASA (5) Parkinsonism Current Visit: Yes Status: Acute Code(s): G20 - PARKINSON'S DISEASE SNOMED Code(s): 03985280 Comment: -Continue Amantadine and Sinemet (6) Hypertriglyceridemia Current Visit: Yes Status: Acute Code(s): E78.1 - PURE HYPERGLYCERIDEMIA SNOMED Code(s): 933144102 Comment: -Continue Fenofibrate (7) Hypothyroidism Current Visit: Yes Status: Acute Code(s): E03.9 - HYPOTHYROIDISM, UNSPECIFIED SNOMED Code(s): 04756911 Comment: -Continue Levothyroxine (8) DVT prophylaxis Current Visit: No Status: Acute Priority: Medium Onset Date: 03/25/15 Code(s): XEH3526 - SNOMED Code(s): 295716795 Comment: -Will change Heparin SQ frequency to q12H Status and Disposition: -D/C back to [facility] [place] when ready
[2018-07-10] MEDS: ZOSYN 3.375 GM Q8H per EXTENDED INFUSION IVPB SCH ×8 (01:00→20:51)
[2018-07-10] MEDS ORDERED: LORazepam INJ* 2 MG/ML 1 ML VIAL IV PUSH ONE (04:37)
[2018-07-10] MEDS ORDERED: LORazepam INJ* 2 MG/ML 1 ML VIAL ONE (04:44)
[2018-07-10 04:46] LABS: Hematocrit 33 % (42-52); Mean Corpuscular HGB Conc 34 g/dl (31-36); Mean Corpuscular Hemoglobin 32 pg (27-31); Mean Corpuscular Volume 93 fL (80-94); Mean Platelet Volume 10.1 um3 (7.4-10.4); Platelet Count 240 10^3/ul (150-450); Red Cell Distribution Width 14 % (10.5-15); White Blood Count 8.6 10^3/ul (3.5-10.8)
--- NOTE | 2018-07-10 04:48 | PN ---
Hospitalist Progress Note Date of Service: 07/10/18 Called to bedside at 415 for AMS. On arrival note that patient staring and non verbal. Would not respond to pain. Tremor noted to upper extremities. Would groan to sternal rub. Not speaking. Weakness to left side and facial droop noted to left residual from prior stroke according to primary RN. Glucose 129. Stat CT brain ordered. Will give 1 mg ativan now. ? seizure, discussed case with covering hospitalist.
[2018-07-10] MEDS: hydrALAZINE IV* 20 MG/ML VIAL IV SLOW PU PRN (04:49)
[2018-07-10 05:01] LABS: EGFR Non-African American 56.8 (>60)
[2018-07-10] MEDS ORDERED: Potassium Phosphate IV* 15 MMOLE in NS 0.9% 250 ML* 250 ML IVPB ONE ×2 (05:03→12:00)
[2018-07-10 05:12] LABS: ABS Basophils 0 10^3/ul (0-0.2); ABS Neutrophils 6.2 10^3/ul (1.5-7.7); Monocytes % 9 % (0-7)
--- NOTE | 2018-07-10 05:56 | RAD ---
EXAM: CT Head Without Intravenous Contrast CLINICAL HISTORY: 73 years old, male; Signs and symptoms; Altered mental status/memory loss and other: Non verbal from a nursing facility; Patient HX: AMS TECHNIQUE: Axial computed tomography images of the head/brain without intravenous contrast. All CT scans at this facility use at least one of these dose optimization techniques: automated exposure control; mA and/or kV adjustment per patient size (includes targeted exams where dose is matched to clinical indication); or iterative reconstruction. COMPARISON: BRAIN WO CT BRAIN WO 03/25/2015 4:11 PM FINDINGS: Brain: There is moderate diffuse cerebral atrophy present, consistent with this patient's age. There is moderate diffuse heterogeneity of the white matter attenuation, consistent with chronic white matter ischemic changes. No hemorrhage. Ventricles: Unremarkable. No ventriculomegaly. Bones/joints: Unremarkable. No acute fracture. Soft tissues: Unremarkable. Sinuses: Unremarkable as visualized. No acute sinusitis. Mastoid air cells: Unremarkable as visualized. No mastoid effusion. IMPRESSION: No acute findings.
[2018-07-10] MEDS: Levothyroxine TAB* 100 MCG TAB PO SCH (06:22)
[2018-07-10] MEDS: Omeprazole CAP* 20 MG PO SCH (06:22)
[2018-07-10] MEDS: KCL 10 MEQ/50 ML IVPREMIX* 10 MEQ/50 ML BAG IV SCH ×3 (06:22→11:30)
[2018-07-10] MEDS: Amantadine CAP* 100 MG PO SCH ×2 (09:17→09:33)
[2018-07-10] MEDS: amLODIPine TAB* 5 MG PO SCH ×2 (09:17→09:33)
[2018-07-10] MEDS: Aspirin EC TAB* 81 MG TAB.EC PO SCH ×2 (09:17→09:33)
[2018-07-10] MEDS: Baclofen TAB* 10 MG PO SCH ×2 (09:18→20:48)
[2018-07-10] MEDS: Gabapentin CAP(*) 300 MG PO SCH ×3 (09:18→20:46)
[2018-07-10] MEDS: Heparin VIAL(*) 5000 UNITS/ML VIAL (FIVE THOUSAND) SUBCUT SCH ×2 (09:18→20:48)
[2018-07-10] MEDS: CMC:Fenofibrate(NF) 145 MG TAB PO SCH ×2 (09:18→09:33)
[2018-07-10] MEDS: Carbidopa/Levodop 25/100 MG TAB(*) PO SCH ×4 (09:18→20:47)
[2018-07-10] MEDS: Raltegravir* 400 MG TAB PO SCH ×3 (09:19→20:50)
[2018-07-10] MEDS: Tenofovir/Emtricitab 200/300 * TAB PO SCH ×2 (09:19→09:33)
[2018-07-10] MEDS: Polyethylene Glycol 3350* 17 GM PACKET PO SCH (09:32)
[2018-07-10] MEDS: Senna TAB PO SCH ×2 (09:32→20:48)
[2018-07-10] MEDS: Docusate CAP* 100 MG PO SCH ×2 (09:32→20:48)
[2018-07-10] MEDS ORDERED: Potassium Phosphate IV* 30 MMOLE in NS 0.9% 250 ML* 250 ML IVPB ONE (10:34)
[2018-07-10] MEDS ORDERED: Potassium Chlor TAB* 20 MEQ TAB.ER PO STA (10:34)
[2018-07-10] MEDS ORDERED: D5W 1000 ML BAG* 1,000 ML IV SCH (11:00)
[2018-07-10] MEDS ORDERED: ZOSYN 3.375 GM Q8H per EXTENDED INFUSION IVPB SCH ×2 (11:00)
[2018-07-10] MEDS: RIVASTIGMINE 4.6 MG TRANSDERM SCH (17:27)
--- NOTE | 2018-07-10 17:32 | PN ---
Subjective Date of Service: 07/10/18 Interval History: Pt seen and examined. Meds and labs reviewed. Pt was seen last night given mental status change. CT of head is unremarkable. However, pt is agitated with waxing and waning mental status change. CC: N/A ROS: Could not reliably obtain a 14 point ROS PHYSICAL EXAM: Unable to fully examine given pt is trying to hit and scratch examiner Objective Active Medications: Acetaminophen (Tylenol Supp*) 650 mg [place] Q6H PRN PRN Reason: FEVER/PAIN Last Admin: 07/08/18 05:02 Dose: 650 mg Amantadine HCl (Symmetrel Cap*) 200 mg PO QAM [facility] Last Admin: 07/10/18 09:33 Dose: Not Given Amlodipine Besylate (Norvasc Tab*) 5 mg PO DAILY [facility] Last Admin: 07/10/18 09:33 Dose: Not Given Aspirin (Aspirin Ec Tab*) 81 mg PO DAILY [facility] Last Admin: 07/10/18 09:33 Dose: Not Given Baclofen (Lioresal Tab*) 10 mg PO BID [facility] Last Admin: 07/10/18 09:18 Dose: 10 mg Carbidopa/Levodopa (Sinemet 25/100 Tab(*)) 3.5 tab PO 1200 [facility] Last Admin: 07/10/18 13:11 Dose: Not Given Carbidopa/Levodopa (Sinemet 25/100 Tab(*)) 3.5 tab PO 1700 [facility] Last Admin: 07/09/18 17:08 Dose: Not Given Carbidopa/Levodopa (Sinemet 25/100 Tab(*)) 4 tab PO QAM [facility] Last Admin: 07/10/18 09:18 Dose: 4 tab Carbidopa/Levodopa (Sinemet 25/100 Tab(*)) 2.5 tab PO 2100 [facility] Last Admin: 07/09/18 20:43 Dose: 2.5 tab Docusate Sodium (Colace Cap*) 200 mg PO BID [facility] Last Admin: 07/10/18 09:32 Dose: Not Given Emtricitabine/Tenofovir (Truvada 200/300 Mg*) 1 tab PO QAM [facility]; Protocol Last Admin: 07/10/18 09:33 Dose: Not Given Fenofibrate (Tricor(Nf)) 145 mg PO QAM [facility]; Protocol Last Admin: 07/10/18 09:33 Dose: Not Given Gabapentin (Neurontin Cap(*)) 300 mg PO TID [facility] Last Admin: 07/10/18 13:56 Dose: Not Given Heparin Sodium (Porcine) (Heparin Vial(*)) 5,000 units SUBCUT Q12HR [facility] Last Admin: 07/10/18 09:18 Dose: 5,000 units Hydralazine HCl (Apresoline Iv*) 10 mg IV SLOW PU Q6H PRN PRN Reason: BLOOD PRESSURE Last Admin: 07/10/18 04:49 Dose: 10 mg Dextrose (D5w 1000 Ml Bag*) 1,000 mls @ 75 mls/hr IV PER RATE [facility] Stop: 07/11/18 00:19 Last Admin: 07/10/18 10:49 Dose: 75 mls/hr Potassium Phosphate 15 mmole/ (Sodium Chloride) 255 mls @ 42 mls/hr IVPB ONCE ONE Stop: 07/10/18 18:04 Last Admin: 07/10/18 13:36 Dose: 42 mls/hr Piperacillin Sod/Tazobactam (Sod 3.375 gm/ Sodium Chloride) 100 mls @ 25 mls/ hr IVPB Q8H [facility] Last Admin: 07/10/18 10:56 Dose: Not Given Ceftriaxone Sodium 1 gm/ (Sodium Chloride) 50 mls @ 200 mls/hr IVPB Q24H [facility] Levothyroxine Sodium (Synthroid Tab*) 100 mcg PO 0600 [facility] Last Admin: 07/10/18 06:22 Dose: Not Given Lorazepam (Ativan Inj*) 0.5 mg IV PUSH Q6H PRN PRN Reason: AGITATION Melatonin (Melatonin) 3 mg PO BEDTIME PRN; Protocol PRN Reason: Sleep Morphine Sulfate (Morphine Inj ((Syringe))*) 2 mg IV Q3H PRN PRN Reason: SOB/air hunger Last Admin: 07/09/18 12:18 Dose: 2 mg Omeprazole (Prilosec Cap*) 20 mg PO DAILY@0600 [facility] Last Admin: 07/10/18 06:22 Dose: Not Given Ondansetron HCl (Zofran Odt Tab*) 4 mg PO Q6H PRN PRN Reason: n/v Polyethylene Glycol/Electrolytes (Miralax*) 17 gm PO DAILY [facility] Last Admin: 07/10/18 09:32 Dose: Not Given Raltegravir (Isentress*) 400 mg PO BID [facility]; Protocol Last Admin: 07/10/18 09:33 Dose: Not Given Rivastigmine (Exelon(Nf)) 1 patch TRANSDERM DAILY [facility] Senna (Senokot Tab*) 2 tab PO BID [facility] Last Admin: 07/10/18 09:32 Dose: Not Given Trazodone HCl (Desyrel Tab*) 25 mg PO BEDTIME [facility] Vital Signs - 8 hr 07/10/18 07/10/18 07/10/18 11:44 13:39 16:26 Temperature 98.8 F 98.9 F Pulse Rate 62 53 Respiratory 18 15 16 Rate Blood Pressure 118/86 146/76 (mmHg) O2 Sat by Pulse 99 97 Oximetry Oxygen Devices in Use Now: None Result Diagrams: 07/10/18 04:34 07/10/18 04:34 Microbiology and Other Data: Microbiology 07/07/18 09:17 Urine Culture - Preliminary Urine Proteus Mirabilis 07/07/18 04:10 Aerobic Blood Culture - Preliminary Blood Venous Proteus Mirabilis Anaerobic Blood Culture - Preliminary Proteus Mirabilis 07/07/18 05:05 Aerobic Blood Culture - Preliminary Blood Venous Proteus Mirabilis Anaerobic Blood Culture - Preliminary Proteus Mirabilis 07/07/18 08:30 Aerobic Blood Culture - Preliminary Blood Venous No Growth Day 1 Anaerobic Blood Culture - Preliminary No Growth Day 1 07/07/18 09:17 Legionella Urinary Antigen - Final Urine Negative Legionella Antigen Streptococcus pneumoniae Ag Screen - Final Negative S. pneumo Antigen 07/07/18 10:00 Nasal Screen MRSA (PCR) - Final Nasal Mrsa Not Detected Assess/Plan/Problems-Billing . Assessment: 73 yo man with LLL S. Pneumo pneumonia and resultant severe sepsis - Patient Problems (1) Sepsis due to gram-negative UTI Current Visit: Yes Status: Acute Code(s): A41.50 - GRAM-NEGATIVE SEPSIS, UNSPECIFIED; N39.0 - URINARY TRACT INFECTION, SITE NOT SPECIFIED SNOMED Code(s ): 648509632 Comment: -Sepsis likely due to UTI --most likely source is prostatitis and PNA may have been due to aspiration -Will D/C Zosyn and place pt on Rocephin per sensitivity data of P. mirabilis on blood cultures, Abx day #3 -Repeat LA is normal at 1.7 -Likely cause of low grade fever this AM, that has improved from a few hours previous -(-)Legionella and S. pneumoniae urine Ag -Will await any further ID input (2) Delirium Current Visit: Yes Status: Acute Code(s): R41.0 - DISORIENTATION, UNSPECIFIED SNOMED Code(s): 7104004 Comment: -Likely due to above, however, pt does have history of CVA in the past and may have some component of vascular dementia and/or vascular mild cognitive deficit and continues to refuse any PO meds -Will place pt on Exelon patch -Consider Neuro consult in AM -Cannot give anti-psychotics given QTc >500 ms, therefore will give PRN BZDs -Will continue watchful waiting (3) Human immunodeficiency virus Current Visit: No Status: Chronic Comment: -Continue Tenofovir/Emtricitab +Raltegravir (4) HCV (hepatitis C virus) Current Visit: Yes Status: Acute Comment: -Defer with ID and/or PCP as outpt (5) CAD (coronary artery disease) Current Visit: No Status: Chronic Code(s): I25.10 - ATHSCL HEART DISEASE OF [place] CORONARY ARTERY W/O ANG PCTRS SNOMED Code(s): 03158533 Comment: #with CVA, hx of: -Continue ASA (6) Parkinsonism Current Visit: Yes Status: Acute Code(s): G20 - PARKINSON'S DISEASE SNOMED Code(s): 64526664 Comment: -Continue Amantadine and Sinemet (7) Hypertriglyceridemia Current Visit: Yes Status: Acute Code(s): E78.1 - PURE HYPERGLYCERIDEMIA SNOMED Code(s): 488444863 Comment: -Continue Fenofibrate (8) Hypothyroidism Current Visit: Yes Status: Acute Code(s): E03.9 - HYPOTHYROIDISM, UNSPECIFIED SNOMED Code(s): 38178753 Comment: -Continue Levothyroxine (9) DVT prophylaxis Current Visit: No Status: Acute Priority: Medium Onset Date: 03/25/15 Code(s): ZEY6744 - SNOMED Code(s): 513791934 Comment: -Will change Heparin SQ frequency to q12H Status and Disposition: -D/C back to [facility] when ready
[2018-07-10] MEDS: cefTRIAXone(*) 1 GM in NS 0.9% 50 ML* 50 ML IVPB SCH (17:43)
[2018-07-10] MEDS: LORazepam INJ* 2 MG/ML 1 ML VIAL IV PUSH PRN (20:45)
[2018-07-10] MEDS: traZODone TAB* 50 MG TAB PO SCH (20:47)
--- NOTE | 2018-07-10 22:07 | EEG ---
ELECTROENCEPHALOGRAPHY: DATE OF STUDY: 07/10/18 - ROOM #450 REFERRING PROVIDER: Clarke Hernandes NP LOCATION: He is an inpatient in room 450. CLINICAL PROBLEM: Episode of unresponsiveness with convulsive movements. Rule out seizure disorder. MEDICATIONS: The patient is on numerous medications includin. Lorazepam. 2. Morphine. 3. Synthroid. 4. Gabapentin. 5. Zosyn. 6. Norvasc. 7. Amantadine. 8. Sinemet. REPORT: This 16-channel EEG is remarkable for background rhythms consisting of a posterior rhythm at about 6 to at most 7 cycles per second, which is fairly symmetric. Low voltage faster rhythms are seen bifrontally. The patient is described as awake and muttering. Intermittent slowing is seen centrally and bitemporally. Activation procedures are not attempted. The patient is asked questions, but does not respond appropriately. There is intermittent movement artifact with tremor and subsequent tremor artifact noted. The patient does not appear to sleep during the recording. There are no focal or epileptiform abnormalities. CLINICAL IMPRESSION: Abnormal EEG due to generalized slowing and disorganization of background rhythms consistent with diffuse cerebral dysfunction. There are no focal or epileptiform features to this recording. [id number]/[facility] #: [id number] [facility]
[2018-07-11] MEDS: ZOSYN 3.375 GM Q8H per EXTENDED INFUSION IVPB SCH ×6 (04:00→18:49)
[2018-07-11] MEDS: hydrALAZINE IV* 20 MG/ML VIAL IV SLOW PU PRN (04:39)
[2018-07-11 05:58] LABS: ABS Basophils 0.1 10^3/ul (0-0.2); ABS Eosinophils 0.1 10^3/ul (0-0.6); ABS Lymphocytes 1.2 10^3/ul (1.0-4.8); ABS Monocytes 0.8 10^3/ul (0-0.8); ABS Neutrophils 6.6 10^3/ul (1.5-7.7); ABS Nucleated RBC 0 10^3/ul; Eosinophil % 1.3 % (0-6); Hematocrit 31 % (42-52); Hemoglobin 10.9 g/dl (14.0-18.0); Lymphocyte % 13.3 % (25-47); Mean Corpuscular HGB Conc 35 g/dl (31-36); Mean Corpuscular Hemoglobin 32 pg (27-31); Mean Corpuscular Volume 92 fL (80-94); Mean Platelet Volume 9.5 um3 (7.4-10.4); Nucleated Red Blood Cells % 0.1; Platelet Count 233 10^3/ul (150-450); Red Blood Count 3.38 10^6/ul (4.00-5.40); Red Cell Distribution Width 15 % (10.5-15); White Blood Count 8.7 10^3/ul (3.5-10.8)
[2018-07-11 06:16] LABS: EGFR Non-African American 50.2 (>60)
[2018-07-11] MEDS: Levothyroxine TAB* 100 MCG TAB PO SCH (06:21)
[2018-07-11] MEDS: Omeprazole CAP* 20 MG PO SCH (06:21)
[2018-07-11] MEDS: Polyethylene Glycol 3350* 17 GM PACKET PO SCH (09:39)
[2018-07-11] MEDS: Docusate CAP* 100 MG PO SCH (09:39)
[2018-07-11] MEDS: Heparin VIAL(*) 5000 UNITS/ML VIAL (FIVE THOUSAND) SUBCUT SCH ×2 (09:40→21:38)
[2018-07-11] MEDS: Carbidopa/Levodop 25/100 MG TAB(*) PO SCH ×4 (09:42→21:37)
[2018-07-11] MEDS: Senna TAB PO SCH (09:49)
[2018-07-11] MEDS: Tenofovir/Emtricitab 200/300 * TAB PO SCH (09:49)
[2018-07-11] MEDS: Baclofen TAB* 10 MG PO SCH ×2 (09:49→21:37)
[2018-07-11] MEDS: amLODIPine TAB* 5 MG PO SCH (09:49)
[2018-07-11] MEDS: CMC:Fenofibrate(NF) 145 MG TAB PO SCH (09:50)
[2018-07-11] MEDS: Raltegravir* 400 MG TAB PO SCH (09:50)
[2018-07-11] MEDS: Aspirin EC TAB* 81 MG TAB.EC PO SCH (09:50)
[2018-07-11] MEDS: Gabapentin CAP(*) 300 MG PO SCH ×3 (09:50→21:37)
[2018-07-11] MEDS: RIVASTIGMINE 4.6 MG TRANSDERM SCH (09:52)
[2018-07-11] MEDS ORDERED: D5W 1000 ML BAG* 1,000 ML IV SCH ×3 (10:00→20:50)
[2018-07-11] MEDS: Amantadine CAP* 100 MG PO SCH (10:07)
[2018-07-11] MEDS ORDERED: POTASSIUM PHOSPHATE IVPB ONE (10:30)
[2018-07-11] MEDS ORDERED: NS IVPB ONE (10:30)
--- NOTE | 2018-07-11 17:21 | PN ---
Subjective Date of Service: 07/11/18 Interval History: Pt seen and examined. Meds and labs reviewed. Pt has waxing and waning MS change and this AM, no longer agitated and violent and was able to take medications last night. CC: N/A ROS: Unable to reliably provide 14 point ROS. Keeps saying messed up, to staff and examiner but unable to expound on what he means PHYSICAL EXAM: GEN APPEARANCE: Awake, not in acute distress HEENT: NC/AT, PERRLA, moist oral mucosa, (-) throat erythema NECK: Soft, supple, (-) cervical LAD, (-)JVD HEART: S1S2 WNL, RRR, No MRG CHEST: CTA, BL, GAE, No W/R/R ABD: Soft, ND/NT, NABS 4x Q EXT: No C/C/E SKIN: Warm to touch PSYCH: No active psychosis, hallucinations, depression, SI/HI Objective Active Medications: Acetaminophen (Tylenol Supp*) 650 mg MI Q6H PRN PRN Reason: FEVER/PAIN Last Admin: 07/08/18 05:02 Dose: 650 mg Amantadine HCl (Symmetrel Cap*) 200 mg PO QAM [facility] Last Admin: 07/11/18 10:07 Dose: 200 mg Amlodipine Besylate (Norvasc Tab*) 5 mg PO DAILY [facility] Last Admin: 07/11/18 09:49 Dose: 5 mg Aspirin (Aspirin Ec Tab*) 81 mg PO DAILY [facility] Last Admin: 07/11/18 09:50 Dose: 81 mg Baclofen (Lioresal Tab*) 10 mg PO BID [facility] Last Admin: 07/11/18 09:49 Dose: 10 mg Carbidopa/Levodopa (Sinemet 25/100 Tab(*)) 3.5 tab PO 1200 [facility] Last Admin: 07/11/18 12:40 Dose: 3.5 tab Carbidopa/Levodopa (Sinemet 25/100 Tab(*)) 3.5 tab PO 1700 [facility] Last Admin: 07/10/18 17:33 Dose: Not Given Carbidopa/Levodopa (Sinemet 25/100 Tab(*)) 4 tab PO QAM [facility] Last Admin: 07/11/18 09:42 Dose: 4 tab Carbidopa/Levodopa (Sinemet 25/100 Tab(*)) 2.5 tab PO 2100 [facility] Last Admin: 07/10/18 20:47 Dose: 2.5 tab Docusate Sodium (Colace Cap*) 200 mg PO BID [facility] Last Admin: 07/11/18 09:39 Dose: Not Given Emtricitabine/Tenofovir (Truvada 200/300 Mg*) 1 tab PO QAM [facility]; Protocol Last Admin: 07/11/18 09:49 Dose: 1 tab Fenofibrate (Tricor(Nf)) 145 mg PO QAM [facility]; Protocol Last Admin: 07/11/18 09:50 Dose: 145 mg Gabapentin (Neurontin Cap(*)) 300 mg PO TID [facility] Last Admin: 07/11/18 15:01 Dose: 300 mg Heparin Sodium (Porcine) (Heparin Vial(*)) 5,000 units SUBCUT Q12HR [facility] Last Admin: 07/11/18 09:40 Dose: 5,000 units Hydralazine HCl (Apresoline Iv*) 10 mg IV SLOW PU Q6H PRN PRN Reason: BLOOD PRESSURE Last Admin: 07/11/18 04:39 Dose: 10 mg Piperacillin Sod/Tazobactam (Sod 3.375 gm/ Sodium Chloride) 100 mls @ 25 mls/ hr IVPB Q8H [facility] Last Admin: 07/11/18 11:18 Dose: 25 mls/hr Ceftriaxone Sodium 1 gm/ (Sodium Chloride) 50 mls @ 200 mls/hr IVPB Q24H [facility] Last Admin: 07/10/18 17:43 Dose: 200 mls/hr Dextrose (D5w 1000 Ml Bag*) 1,000 mls @ 120 mls/hr IV PER RATE [facility] Stop: 07/12/18 01:26 Levothyroxine Sodium (Synthroid Tab*) 100 mcg PO 0600 [facility] Last Admin: 07/11/18 06:21 Dose: Not Given Lorazepam (Ativan Inj*) 0.5 mg IV PUSH Q6H PRN PRN Reason: AGITATION Last Admin: 07/10/18 20:45 Dose: 0.5 mg Melatonin (Melatonin) 3 mg PO BEDTIME PRN; Protocol PRN Reason: Sleep Morphine Sulfate (Morphine Inj ((Syringe))*) 2 mg IV Q3H PRN PRN Reason: SOB/air hunger Last Admin: 07/09/18 12:18 Dose: 2 mg Omeprazole (Prilosec Cap*) 20 mg PO DAILY@0600 [facility] Last Admin: 07/11/18 06:21 Dose: Not Given Ondansetron HCl (Zofran Odt Tab*) 4 mg PO Q6H PRN PRN Reason: n/v Polyethylene Glycol/Electrolytes (Miralax*) 17 gm PO DAILY [facility] Last Admin: 07/11/18 09:39 Dose: Not Given Raltegravir (Isentress*) 400 mg PO BID [facility]; Protocol Last Admin: 07/11/18 09:50 Dose: 400 mg Rivastigmine (Exelon(Nf)) 1 patch TRANSDERM DAILY [facility] Last Admin: 07/11/18 09:52 Dose: 1 patch Senna (Senokot Tab*) 2 tab PO BID [facility] Last Admin: 07/11/18 09:49 Dose: Not Given Trazodone HCl (Desyrel Tab*) 25 mg PO BEDTIME [facility] Last Admin: 07/10/18 20:47 Dose: 25 mg Vital Signs - 8 hr 07/11/18 07/11/18 07/11/18 09:38 09:50 12:01 Temperature 98.7 F 98.3 F Pulse Rate 95 96 Respiratory 16 14 20 Rate Blood Pressure 146/103 149/117 (mmHg) O2 Sat by Pulse 99 98 Oximetry 07/11/18 07/11/18 07/11/18 12:36 15:01 15:04 Temperature Pulse Rate Respiratory 16 20 20 Rate Blood Pressure (mmHg) O2 Sat by Pulse Oximetry 07/11/18 07/11/18 15:37 15:59 Temperature 99.2 F Pulse Rate 98 Respiratory 24 20 Rate Blood Pressure 133/86 (mmHg) O2 Sat by Pulse 97 Oximetry Oxygen Devices in Use Now: None Result Diagrams: 07/11/18 05:46 07/11/18 14:33 Microbiology and Other Data: Microbiology 07/07/18 09:17 Urine Culture - Preliminary Urine Proteus Mirabilis 07/07/18 04:10 Aerobic Blood Culture - Preliminary Blood Venous Proteus Mirabilis Anaerobic Blood Culture - Preliminary Proteus Mirabilis 07/07/18 05:05 Aerobic Blood Culture - Preliminary Blood Venous Proteus Mirabilis Anaerobic Blood Culture - Preliminary Proteus Mirabilis 07/07/18 08:30 Aerobic Blood Culture - Preliminary Blood Venous No Growth Day 1 Anaerobic Blood Culture - Preliminary No Growth Day 1 07/07/18 09:17 Legionella Urinary Antigen - Final Urine Negative Legionella Antigen Streptococcus pneumoniae Ag Screen - Final Negative S. pneumo Antigen 07/07/18 10:00 Nasal Screen MRSA (PCR) - Final Nasal Mrsa Not Detected Assess/Plan/Problems-Billing . Assessment: 73 yo man with LLL S. Pneumo pneumonia and resultant severe sepsis - Patient Problems (1) Sepsis due to gram-negative UTI Current Visit: Yes Status: Acute Code(s): A41.50 - GRAM-NEGATIVE SEPSIS, UNSPECIFIED; N39.0 - URINARY TRACT INFECTION, SITE NOT SPECIFIED SNOMED Code(s ): 476527864 Comment: -Sepsis likely due to UTI --most likely source is prostatitis and PNA may have been due to aspiration -Continue Rocephin per sensitivity data of P. mirabilis on blood cultures, Abx day #4 -Repeat LA is normal at 1.7 -(-)Legionella and S. pneumoniae urine Ag -Will await any further ID input (2) Aspiration pneumonia Current Visit: Yes Status: Acute Code(s): J69.0 - PNEUMONITIS DUE TO INHALATION OF FOOD AND VOMIT SNOMED Code(s): 142601419 Comment: -As above (3) Hypernatremia Current Visit: Yes Status: Acute Code(s): E87.0 - HYPEROSMOLALITY AND HYPERNATREMIA SNOMED Code(s): 64160244 Comment: -Placed pt on D5W this AM and on re-check, sodium level remains stable -Will increase the rate to 125 cc/hr and recheck Sodium levels at 8PM (4) Electrolyte abnormality Current Visit: Yes Status: Acute Code(s): E87.8 - OTH DISORDERS OF ELECTROLYTE AND FLUID BALANCE, NEC SNOMED Code(s): 049366289 Comment: -Will replenish both potassium and phosphate levels---recheck at 1800 for any additional needs (5) Delirium Current Visit: Yes Status: Acute Code(s): R41.0 - DISORIENTATION, UNSPECIFIED SNOMED Code(s): 3011760 Comment: -Likely due to above, however, pt does have history of CVA in the past and may have some component of vascular dementia and/or vascular mild cognitive deficit and continues to refuse any PO meds -Will place pt on Exelon patch -Consider Neuro consult in AM -Cannot give anti-psychotics given QTc >500 ms, therefore will give PRN BZDs -Will continue watchful waiting (6) Human immunodeficiency virus Current Visit: No Status: Chronic Comment: -Continue Tenofovir/Emtricitab +Raltegravir (7) HCV (hepatitis C virus) Current Visit: Yes Status: Acute Comment: -Defer with ID and/or PCP as outpt (8) CAD (coronary artery disease) Current Visit: No Status: Chronic Code(s): I25.10 - ATHSCL HEART DISEASE OF [place] CORONARY ARTERY W/O ANG PCTRS SNOMED Code(s): 37068386 Comment: #with CVA, hx of: -Continue ASA (9) Parkinsonism Current Visit: Yes Status: Acute Code(s): G20 - PARKINSON'S DISEASE SNOMED Code(s): 16705441 Comment: -Continue Amantadine and Sinemet (10) Hypertriglyceridemia Current Visit: Yes Status: Acute Code(s): E78.1 - PURE HYPERGLYCERIDEMIA SNOMED Code(s): 475273730 Comment: -Continue Fenofibrate (11) Hypothyroidism Current Visit: Yes Status: Acute Code(s): E03.9 - HYPOTHYROIDISM, UNSPECIFIED SNOMED Code(s): 65311575 Comment: -Continue Levothyroxine -Will obtain TSH and Ft4 (12) DVT prophylaxis Current Visit: No Status: Acute Priority: Medium Onset Date: 03/25/15 Code(s): DUG0264 - SNOMED Code(s): 931452635 Comment: -Will change Heparin SQ frequency to q12H Status and Disposition: -D/C back to [facility] when ready
[2018-07-11] MEDS: cefTRIAXone(*) 1 GM in NS 0.9% 50 ML* 50 ML IVPB SCH (18:12)
[2018-07-11 19:09] LABS: EGFR Non-African American 43.6 (>60)
[2018-07-11] MEDS ORDERED: KCL 20 MEQ/100 ML IVPREMIX* 20 MEQ/100 ML BAG IV ONE (19:13)
[2018-07-11] MEDS ORDERED: NS 0.9% 100 ML* 100 ML ONE (21:34)
[2018-07-11] MEDS: LORazepam INJ* 2 MG/ML 1 ML VIAL IV PUSH PRN (21:50)
[2018-07-11] MEDS: traZODone TAB* 50 MG TAB PO SCH (22:25)
[2018-07-12] MEDS: ZOSYN 3.375 GM Q8H per EXTENDED INFUSION IVPB SCH ×6 (03:27→20:08)
[2018-07-12 06:06] LABS: ABS Basophils 0.1 10^3/ul (0-0.2); ABS Eosinophils 0.2 10^3/ul (0-0.6); ABS Lymphocytes 1.5 10^3/ul (1.0-4.8); ABS Monocytes 0.8 10^3/ul (0-0.8); ABS Neutrophils 6.2 10^3/ul (1.5-7.7); ABS Nucleated RBC 0 10^3/ul; Eosinophil % 2.4 % (0-6); Hematocrit 32 % (42-52); Hemoglobin 10.6 g/dl (14.0-18.0); Mean Corpuscular HGB Conc 33 g/dl (31-36); Mean Corpuscular Hemoglobin 31 pg (27-31); Mean Corpuscular Volume 94 fL (80-94); Nucleated Red Blood Cells % 0.2; Platelet Count 238 10^3/ul (150-450); Red Blood Count 3.38 10^6/ul (4.00-5.40); Red Cell Distribution Width 15 % (10.5-15); White Blood Count 8.7 10^3/ul (3.5-10.8)
[2018-07-12 06:22] LABS: EGFR Non-African American 46.3 (>60)
[2018-07-12] MEDS: Raltegravir* 400 MG TAB PO SCH ×3 (06:24→20:38)
[2018-07-12] MEDS: Senna TAB PO SCH ×3 (06:24→20:38)
[2018-07-12] MEDS: Docusate CAP* 100 MG PO SCH ×3 (06:24→20:34)
[2018-07-12] MEDS: Omeprazole CAP* 20 MG PO SCH (06:26)
[2018-07-12] MEDS: Levothyroxine TAB* 100 MCG TAB PO SCH (06:26)
[2018-07-12] MEDS ORDERED: LORazepam INJ* 2 MG/ML 1 ML VIAL IV PUSH ONE ×2 (06:30→20:32)
[2018-07-12] MEDS: Tenofovir/Emtricitab 200/300 * TAB PO SCH (10:29)
--- NOTE | 2018-07-12 11:01 | PN ---
Subjective Date of Service: 07/12/18 Interval History: Pt. seen and examined after a CAT call due to pt being unresponsive after being given 0.5 mg of IV Ativan. Pt's pupils reactive and although initially unresponsive to sternal rub, then spontaneously opened eyes and mentation gradually improving. Re-ordered labs, EKG, and ABG. Given improvement of MS a few minutes to seconds of eval, will continue with plan for MRI of head given pt is current hemodynamically stable. Discussed with Dr. Alicea who agrees that CT of the head might delay necessary MRI impeded by his usual agitation due to vascular dementia with behavioral issues. Objective Active Medications: Acetaminophen (Tylenol Supp*) 650 mg NM Q6H PRN PRN Reason: FEVER/PAIN Last Admin: 07/08/18 05:02 Dose: 650 mg Amantadine HCl (Symmetrel Cap*) 200 mg PO QAM [facility] Last Admin: 07/11/18 10:07 Dose: 200 mg Amlodipine Besylate (Norvasc Tab*) 5 mg PO DAILY [facility] Last Admin: 07/11/18 09:49 Dose: 5 mg Aspirin (Aspirin Ec Tab*) 81 mg PO DAILY [facility] Last Admin: 07/11/18 09:50 Dose: 81 mg Baclofen (Lioresal Tab*) 10 mg PO BID [facility] Last Admin: 07/11/18 21:37 Dose: 10 mg Carbidopa/Levodopa (Sinemet 25/100 Tab(*)) 3.5 tab PO 1200 [facility] Last Admin: 07/11/18 12:40 Dose: 3.5 tab Carbidopa/Levodopa (Sinemet 25/100 Tab(*)) 3.5 tab PO 1700 [facility] Last Admin: 07/11/18 18:49 Dose: 3.5 tab Carbidopa/Levodopa (Sinemet 25/100 Tab(*)) 4 tab PO QAM [facility] Last Admin: 07/11/18 09:42 Dose: 4 tab Carbidopa/Levodopa (Sinemet 25/100 Tab(*)) 2.5 tab PO 2100 [facility] Last Admin: 07/11/18 21:37 Dose: 2.5 tab Docusate Sodium (Colace Cap*) 200 mg PO BID [facility] Last Admin: 07/12/18 06:24 Dose: Not Given Emtricitabine/Tenofovir (Truvada 200/300 Mg*) 1 tab PO QAM [facility]; Protocol Last Admin: 07/11/18 09:49 Dose: 1 tab Fenofibrate (Tricor(Nf)) 145 mg PO QAM [facility]; Protocol Last Admin: 07/11/18 09:50 Dose: 145 mg Gabapentin (Neurontin Cap(*)) 300 mg PO TID [facility] Last Admin: 07/11/18 21:37 Dose: 300 mg Heparin Sodium (Porcine) (Heparin Vial(*)) 5,000 units SUBCUT Q12HR [facility] Last Admin: 07/11/18 21:38 Dose: 5,000 units Hydralazine HCl (Apresoline Iv*) 10 mg IV SLOW PU Q6H PRN PRN Reason: BLOOD PRESSURE Last Admin: 07/11/18 04:39 Dose: 10 mg Piperacillin Sod/Tazobactam (Sod 3.375 gm/ Sodium Chloride) 100 mls @ 25 mls/ hr IVPB Q8H [facility] Last Admin: 07/12/18 03:27 Dose: 25 mls/hr Ceftriaxone Sodium 1 gm/ (Sodium Chloride) 50 mls @ 200 mls/hr IVPB Q24H [facility] Last Admin: 07/11/18 18:12 Dose: 200 mls/hr Levothyroxine Sodium (Synthroid Tab*) 100 mcg PO 0600 [facility] Last Admin: 07/12/18 06:26 Dose: Not Given Lorazepam (Ativan Inj*) 0.5 mg IV PUSH Q6H PRN PRN Reason: AGITATION Last Admin: 07/11/18 21:50 Dose: 0.5 mg Melatonin (Melatonin) 3 mg PO BEDTIME PRN; Protocol PRN Reason: Sleep Morphine Sulfate (Morphine Inj ((Syringe))*) 2 mg IV Q3H PRN PRN Reason: SOB/air hunger Last Admin: 07/09/18 12:18 Dose: 2 mg Omeprazole (Prilosec Cap*) 20 mg PO DAILY@0600 [facility] Last Admin: 07/12/18 06:26 Dose: Not Given Ondansetron HCl (Zofran Odt Tab*) 4 mg PO Q6H PRN PRN Reason: n/v Polyethylene Glycol/Electrolytes (Miralax*) 17 gm PO DAILY [facility] Last Admin: 07/11/18 09:39 Dose: Not Given Raltegravir (Isentress*) 400 mg PO BID [facility]; Protocol Last Admin: 07/12/18 06:24 Dose: Not Given Rivastigmine (Exelon(Nf)) 1 patch TRANSDERM DAILY [facility] Last Admin: 07/11/18 09:52 Dose: 1 patch Senna (Senokot Tab*) 2 tab PO BID [facility] Last Admin: 07/12/18 06:24 Dose: Not Given Trazodone HCl (Desyrel Tab*) 25 mg PO BEDTIME [facility] Last Admin: 07/11/18 22:25 Dose: 25 mg Vital Signs - 8 hr 07/12/18 07/12/18 07/12/18 06:07 06:09 10:26 Respiratory 18 18 16 Rate Oxygen Devices in Use Now: None Result Diagrams: 07/12/18 05:40 07/12/18 05:40 Microbiology and Other Data: Microbiology 07/07/18 09:17 Urine Culture - Preliminary Urine Proteus Mirabilis 07/07/18 04:10 Aerobic Blood Culture - Preliminary Blood Venous Proteus Mirabilis Anaerobic Blood Culture - Preliminary Proteus Mirabilis 07/07/18 05:05 Aerobic Blood Culture - Preliminary Blood Venous Proteus Mirabilis Anaerobic Blood Culture - Preliminary Proteus Mirabilis 07/07/18 08:30 Aerobic Blood Culture - Preliminary Blood Venous No Growth Day 1 Anaerobic Blood Culture - Preliminary No Growth Day 1 07/07/18 09:17 Legionella Urinary Antigen - Final Urine Negative Legionella Antigen Streptococcus pneumoniae Ag Screen - Final Negative S. pneumo Antigen 07/07/18 10:00 Nasal Screen MRSA (PCR) - Final Nasal Mrsa Not Detected Assess/Plan/Problems-Billing . Assessment: 73 yo man with LLL S. Pneumo pneumonia and resultant severe sepsis - Patient Problems (1) Sepsis due to gram-negative UTI Current Visit: Yes Status: Acute Code(s): A41.50 - GRAM-NEGATIVE SEPSIS, UNSPECIFIED; N39.0 - URINARY TRACT INFECTION, SITE NOT SPECIFIED SNOMED Code(s ): 002165993 Comment: -Sepsis likely due to UTI --most likely source is prostatitis and PNA may have been due to aspiration -Continue Rocephin per sensitivity data of P. mirabilis on blood cultures, Abx day #4 -Repeat LA is normal at 1.7 -(-)Legionella and S. pneumoniae urine Ag -Will await any further ID input (2) Aspiration pneumonia Current Visit: Yes Status: Acute Code(s): J69.0 - PNEUMONITIS DUE TO INHALATION OF FOOD AND VOMIT SNOMED Code(s): 143551937 Comment: -As above (3) Hypernatremia Current Visit: Yes Status: Acute Code(s): E87.0 - HYPEROSMOLALITY AND HYPERNATREMIA SNOMED Code(s): 13856951 Comment: -Placed pt on D5W this AM and on re-check, sodium level remains stable -Will increase the rate to 125 cc/hr and recheck Sodium levels at 8PM (4) Electrolyte abnormality Current Visit: Yes Status: Acute Code(s): E87.8 - OTH DISORDERS OF ELECTROLYTE AND FLUID BALANCE, NEC SNOMED Code(s): 459249783 Comment: -Will replenish both potassium and phosphate levels---recheck at 1800 for any additional needs (5) Delirium Current Visit: Yes Status: Acute Code(s): R41.0 - DISORIENTATION, UNSPECIFIED SNOMED Code(s): 0889767 Comment: -Likely due to above, however, pt does have history of CVA in the past and may have some component of vascular dementia and/or vascular mild cognitive deficit and continues to refuse any PO meds -Will place pt on Exelon patch -Consider Neuro consult in AM -Cannot give anti-psychotics given QTc >500 ms, therefore will give PRN BZDs -Will continue watchful waiting (6) Human immunodeficiency virus Current Visit: No Status: Chronic Comment: -Continue Tenofovir/Emtricitab +Raltegravir (7) HCV (hepatitis C virus) Current Visit: Yes Status: Acute Comment: -Defer with ID and/or PCP as outpt (8) CAD (coronary artery disease) Current Visit: No Status: Chronic Code(s): I25.10 - ATHSCL HEART DISEASE OF [place] CORONARY ARTERY W/O ANG PCTRS SNOMED Code(s): 68957370 Comment: #with CVA, hx of: -Continue ASA (9) Parkinsonism Current Visit: Yes Status: Acute Code(s): G20 - PARKINSON'S DISEASE SNOMED Code(s): 66405185 Comment: -Continue Amantadine and Sinemet (10) Hypertriglyceridemia Current Visit: Yes Status: Acute Code(s): E78.1 - PURE HYPERGLYCERIDEMIA SNOMED Code(s): 116421870 Comment: -Continue Fenofibrate (11) Hypothyroidism Current Visit: Yes Status: Acute Code(s): E03.9 - HYPOTHYROIDISM, UNSPECIFIED SNOMED Code(s): 23911341 Comment: -Continue Levothyroxine -Will obtain TSH and Ft4 (12) DVT prophylaxis Current Visit: No Status: Acute Priority: Medium Onset Date: 03/25/15 Code(s): TFM5796 - SNOMED Code(s): 987416449 Comment: -Will change Heparin SQ frequency to q12H Status and Disposition: -D/C back to [facility] when ready
[2018-07-12 11:05] LABS: ABS Basophils 0.1 10^3/ul (0-0.2); ABS Eosinophils 0.2 10^3/ul (0-0.6); ABS Lymphocytes 1.5 10^3/ul (1.0-4.8); ABS Monocytes 0.7 10^3/ul (0-0.8); ABS Neutrophils 6.4 10^3/ul (1.5-7.7); ABS Nucleated RBC 0 10^3/ul; Eosinophil % 2.6 % (0-6); Hematocrit 33 % (42-52); Lymphocyte % 16.3 % (25-47); Mean Corpuscular HGB Conc 33 g/dl (31-36); Mean Corpuscular Hemoglobin 31 pg (27-31); Mean Corpuscular Volume 93 fL (80-94); Mean Platelet Volume 9.9 um3 (7.4-10.4); Nucleated Red Blood Cells % 0.2; Platelet Count 244 10^3/ul (150-450); Red Blood Count 3.53 10^6/ul (4.00-5.40); Red Cell Distribution Width 15 % (10.5-15); White Blood Count 8.9 10^3/ul (3.5-10.8)
[2018-07-12] MEDS ORDERED: KCL 20 MEQ/100 ML IVPREMIX* 20 MEQ/100 ML BAG IV ONE (11:13)
[2018-07-12 11:26] LABS: EGFR Non-African American 48.6 (>60)
[2018-07-12] MEDS ORDERED: D5W 1000 ML BAG* 1,000 ML IV SCH (12:00)
--- NOTE | 2018-07-12 12:14 | RAD ---
INDICATION: Unresponsive COMPARISON: CT brain July 10, 2018 TECHNIQUE: Noncontrast axial source images were acquired from the skull base to the vertex. FINDINGS: Ventricles/sulci: There is moderate cortical atrophy with compensatory dilatation of the CSF spaces. Brain parenchyma: There is no acute focal parenchymal finding, evidence of intracranial mass, or intracranial mass effect. There is decreased attenuation in the periventricular white matter consistent with chronic ischemia. This is most prominent in the right frontal region. The appearance unchanged. Intracranial hemorrhage:None. Extra-axial spaces: There are no abnormal extra axial fluid collections or evidence of extra-axial mass. Calvarium: There is no calvarial fracture or other calvarial abnormality. Scalp: There is no evidence of scalp or extracalvarial soft tissue abnormality. Paranasal sinuses/mastoid: The paranasal sinuses and mastoid air cells are clear. Other: None. IMPRESSION: ATROPHY WITH CHRONIC MICROVASCULAR ISCHEMIC CHANGES. NO ACUTE FINDINGS
[2018-07-12] MEDS: Amantadine CAP* 100 MG PO SCH (12:47)
[2018-07-12] MEDS: Gabapentin CAP(*) 300 MG PO SCH ×3 (12:47→20:33)
[2018-07-12] MEDS: amLODIPine TAB* 5 MG PO SCH (12:47)
[2018-07-12] MEDS: Carbidopa/Levodop 25/100 MG TAB(*) PO SCH ×3 (12:48→20:34)
[2018-07-12] MEDS: CMC:Fenofibrate(NF) 145 MG TAB PO SCH (12:48)
[2018-07-12] MEDS: Baclofen TAB* 10 MG PO SCH ×2 (12:48→20:34)
[2018-07-12] MEDS: Aspirin EC TAB* 81 MG TAB.EC PO SCH (12:48)
[2018-07-12] MEDS: Polyethylene Glycol 3350* 17 GM PACKET PO SCH (12:49)
[2018-07-12] MEDS: Heparin VIAL(*) 5000 UNITS/ML VIAL (FIVE THOUSAND) SUBCUT SCH ×2 (12:49→20:38)
[2018-07-12] MEDS: RIVASTIGMINE 4.6 MG TRANSDERM SCH (12:59)
--- NOTE | 2018-07-12 13:17 | RAD ---
INDICATION: Confusion evaluate for CVA. COMPARISON: Comparison is made with a prior CT of the brain from July 12, 2018. TECHNIQUE: Sagittal T1 and axial flair and diffusion-weighted images were obtained. The exam is limited metallic artifact was noted on the initial images in the study was terminated. FINDINGS: The ventricles, cisterns and sulci are prominent consistent with diffuse atrophy. There are focal areas of increased signal intensity on T2-weighted images present in the subcortical and periventricular white matter most consistent with moderate chronic small vessel ischemic changes. No mass effect is present. There is a tiny 3 mm area of restricted diffusion present in the subcortical white matter in the left frontal lobe suggestive of a small acute to subacute infarct. There is no evidence for hemorrhage. IMPRESSION: 1. LIMITED STUDY, FINDINGS SUGGESTIVE OF A VERY SMALL NONHEMORRHAGIC INFARCT IN THE LEFT FRONTAL LOBE. 2. ATROPHY AND FINDINGS CONSISTENT WITH MODERATE CHRONIC SMALL VESSEL ISCHEMIC CHANGES.
[2018-07-12] MEDS: LORazepam INJ* 2 MG/ML 1 ML VIAL IV PUSH PRN (16:32)
--- NOTE | 2018-07-12 18:08 | RAD ---
INDICATION: Pneumonia and congestion. COMPARISON: Comparison is made with a prior study from July 07, 2018. TECHNIQUE: A portable view of the chest was obtained. The patient was uncooperative and the study is limited. The left costophrenic angle is cut off on the film. FINDINGS: The heart appears mildly enlarged and unchanged from the prior exam. The lungs are underinflated. There is mild prominence of the interstitial markings. No focal infiltrate is appreciated. IMPRESSION: 1. LIMITED STUDY. 2. MILD PROMINENCE OF THE INTERSTITIAL MARKINGS RAISING THE POSSIBILITY OF MILD CONGESTIVE HEART FAILURE.
[2018-07-12] MEDS: cefTRIAXone(*) 1 GM in NS 0.9% 50 ML* 50 ML IVPB SCH (18:14)
[2018-07-12] MEDS: QUEtiapine TAB* 25 MG PO SCH (18:14)
--- NOTE | 2018-07-12 19:45 | CONS ---
NEUROLOGY CONSULTATION: DATE OF CONSULT: 07/12/18 LOCATION: He is an inpatient in room 450. REFERRING PHYSICIAN: Dr. Hernandez. CHIEF COMPLAINT: Delirium. HISTORY OF PRESENT ILLNESS: Jose Amaro is a 73-year-old man, who was admitted on 07/07/18 with sepsis. He was felt to have pneumonia and has been treated with antibiotics. He is continued to be agitated and delirious and so I was asked to see him. In reviewing old records, he has a diagnosis of diffuse Lewy body disease by Dr. Sorto and has been treated with Sinemet and amantadine. Inpatient consultation note from 02/27/12 indicates that the patient was pretty demented by that point in time. He has been on antiretroviral therapy for HIV for many years. Currently, he is refusing oral medications. When I attempted to evaluate him, he was repetitively yelling " you go away." He was doing this with the nursing staff as well as trying to hit people if they try to touch him. MEDICATIONS: Current medications consist of: 1. Carbidopa/levodopa 25/100, which he is taking 4 tablets in the morning, 3-1/ 2 tablets at noon and at 5 p.m., and 2-1/2 tablets at bedtime. 2. Amantadine 200 mg each morning. 3. Rivastigmine patch, which was just started yesterday. 4. Amlodipine mg p.o. q. day. 5. Azithromycin 500 mg q.24 hours. 6. Baclofen 10 mg p.o. b.i.d. 7. Omeprazole 20 mg p.o. q. day. 8. Levothyroxine 100 mcg p.o. q. day. 9. Aspirin 81 mg p.o. q. day. 10. Gabapentin 300 mg p.o. t.i.d. 11. Isentress p.o. b.i.d. 12. Truvada 1 p.o. q. day. 13. Heparin 5000 units subcutaneous q.12 hours. 14. Morphine 2 mg IV q.3 hours as needed for pain. 15. Zosyn q.8 hours. 16. Ceftriaxone 1 g q.24 hours. 17. 25 mg p.o. q.h.s. 18. Lorazepam 0.25 mg IV q.6 hours as needed for agitation. PHYSICAL EXAM: It is very limited as he is very agitated and will not let me touch him. He repeatedly yells for me to leave. Last temperature recorded was 98.3, blood pressure 118/71, heart rate 96. Oxygen saturation was 98% on room air. He is alert and agitated. He does not follow any commands. He hits out at the examiner or the nursing staff when they try to touch him. Further evaluation was therefore not carried out. DIAGNOSTIC STUDIES/LAB DATA: Includes a white blood cell count today of 8.9, hemoglobin is stable 11, platelet count 244,000. Chemistries from earlier today : Sodium 151, potassium 3.4, creatinine 1.42 which is stable for him. Glucose 111. AST and ALT are both very low. TSH on 07/11/18 was borderline elevated at 6.09. Urinalysis on 07/07/18 notable for 3+ white blood cells, 3+ red blood cells, bloody urine. Microbiological studies notable for positive urine cultures for Proteus mirabilis, multiple positive blood cultures for Proteus mirabilis as well. IMPRESSION AND PLAN: Impression is that of agitated delirium in a patient with preexistent dementia. I would minimize all unnecessary drugs particularly that even might have any psychotropic effect. Recommend cutting his Sinemet down to 2 tablets 3 times per day as he is not ambulatory at this point any ways. Recommend stopping amantadine, which can cause hallucinations and agitation. Recommend adding Seroquel 25 mg if we can get him to take oral medications. For now, he may need to get parenteral benzodiazepines in low dose only. I would avoid other antipsychotics besides Seroquel because of his diagnosis of diffuse Lewy body disease. He had an EKG just earlier today, which did not reveal long QT interval. It is not unusual that his mental status is not back to "normal" in a patient admitted with sepsis and preexistent dementia. Psychiatry consultation should be considered as well if the agitation continues. [id number]/[facility] #: [id number] [facility]
[2018-07-12] MEDS: traZODone TAB* 50 MG TAB PO SCH (20:39)
[2018-07-13] MEDS: ZOSYN 3.375 GM Q8H per EXTENDED INFUSION IVPB SCH ×2 (01:41)
[2018-07-13] MEDS: hydrALAZINE IV* 20 MG/ML VIAL IV SLOW PU PRN (03:31)
[2018-07-13] MEDS: Levothyroxine TAB* 100 MCG TAB PO SCH (05:06)
[2018-07-13] MEDS: Omeprazole CAP* 20 MG PO SCH (05:06)
[2018-07-13 05:37] LABS: Hematocrit 34 % (42-52); Mean Corpuscular HGB Conc 33 g/dl (31-36); Mean Corpuscular Hemoglobin 31 pg (27-31); Mean Corpuscular Volume 94 fL (80-94); Mean Platelet Volume 10.3 um3 (7.4-10.4); Platelet Count 273 10^3/ul (150-450); Red Blood Count 3.58 10^6/ul (4.00-5.40); Red Cell Distribution Width 15 % (10.5-15)
[2018-07-13 05:58] LABS: EGFR Non-African American 47.8 (>60)
[2018-07-13 06:02] LABS: ABS Basophils 0 10^3/ul (0-0.2); ABS Eosinophils 0.2 10^3/ul (0-0.6); ABS Lymphocytes 1.3 10^3/ul (1.0-4.8); ABS Monocytes 0.7 10^3/ul (0-0.8); ABS Neutrophils 7.7 10^3/ul (1.5-7.7); ABS Nucleated RBC 0 10^3/ul; Eosinophil % 2.2 % (0-6); Lymphocyte % 13.4 % (25-47); Nucleated Red Blood Cells % 0.4
[2018-07-13] MEDS ORDERED: Potassium Phosphate IV* 15 MMOLE in NS 0.9% 250 ML* 250 ML IVPB ONE ×2 (09:21→18:00)
[2018-07-13] MEDS ORDERED: Furosemide IV* 10 MG/ML VIAL (40 MG) IV ONE (09:22)
[2018-07-13] MEDS ORDERED: hydrALAZINE IV* 20 MG/ML VIAL IV SLOW PU PRN (09:24)
[2018-07-13] MEDS ORDERED: OLANzapine TAB*ODT* 5 MG PRN (11:06)
[2018-07-13] MEDS: Gabapentin CAP(*) 300 MG PO SCH (12:43)
[2018-07-13] MEDS: QUEtiapine TAB* 25 MG PO SCH (12:43)
[2018-07-13] MEDS: Carbidopa/Levodop 25/100 MG TAB(*) PO SCH ×3 (13:12→21:36)
[2018-07-13] MEDS: Baclofen TAB* 10 MG PO SCH ×2 (13:12→21:36)
[2018-07-13] MEDS: Aspirin EC TAB* 81 MG TAB.EC PO SCH (13:12)
[2018-07-13] MEDS: amLODIPine TAB* 5 MG PO SCH (13:12)
[2018-07-13] MEDS: Docusate CAP* 100 MG PO SCH ×2 (13:13→22:14)
[2018-07-13] MEDS: Senna TAB PO SCH ×2 (13:13→21:37)
[2018-07-13] MEDS: Tenofovir/Emtricitab 200/300 * TAB PO SCH (13:13)
[2018-07-13] MEDS: CMC:Fenofibrate(NF) 145 MG TAB PO SCH (13:13)
[2018-07-13] MEDS: Raltegravir* 400 MG TAB PO SCH ×2 (13:13→21:37)
[2018-07-13] MEDS: Heparin VIAL(*) 5000 UNITS/ML VIAL (FIVE THOUSAND) SUBCUT SCH ×2 (13:13→21:53)
[2018-07-13] MEDS: Polyethylene Glycol 3350* 17 GM PACKET PO SCH (13:13)
[2018-07-13] MEDS: Gabapentin CAP(*) 400 MG PO SCH ×2 (13:14→21:36)
[2018-07-13] MEDS: LORazepam INJ* 2 MG/ML 1 ML VIAL IM PRN ×2 (14:32→15:39)
[2018-07-13] MEDS ORDERED: Magnesium Sulfate IV* 2 GM in NS 0.9% 100 ML* 100 ML IVPB ONE (14:44)
[2018-07-13] MEDS ORDERED: Magnesium Sulfate 2 GM IV (Premix) IVPB ONE ×2 (15:00→20:00)
--- NOTE | 2018-07-13 15:44 | CONS ---
CONSULTATION REPORT: DATE OF CONSULT: 07/13/18 ATTENDING PHYSICIAN: Dr. Ryan Hernandez CONSULTING PHYSICIAN: Dr. Cy Talavera REASON FOR CONSULT: Confusion, agitated behavior. SUBJECTIVE HISTORY: Psychiatry is asked to see this 73-year-old single, -[place] male, who is a [facility] resident with a history of HIV, hepatitis C, coronary artery disease, stroke, parkinsonism, hypertension, hypertriglyceridemia, hypothyroidism, and PUD, who presents with altered mental status and confusion and fever. My understanding is that he has been admitted for several days and subsequently diagnosed with sepsis, aspiration pneumonia, and gram-negative urinary tract infection. Additionally, he has consistently presented with delirium and was seen already by the Neurology service. He was evaluated by neurologist, Dr. Rubin Mcdonald, 1 day prior to this consult and at that time it was revealed that he had an existing diagnosis of Lewy body dementia and had been previously treated by retired neurologist, Dr. Mayte Sorto, in the community. Dr. Mcdonald discontinued the patient's amantadine and reduced his Sinemet and recommended low-dose quetiapine therapy. Today, I spoke with hospitalist, Dr. Hernandez, who expresses a concern about using quetiapine in the setting of a patient with known parkinsonism and Lewy body disease as well as dementia and elevated QTc intervals. My understanding is that his QT intervals have been registered at above 500 and it is well known that antipsychotics can prolong QTc as well. When I went to evaluate the patient, I did confirm with nursing staff that he is often combative, spitting at staff members, not allowing them to dress him or render care. For this reason, he has been placed in both restraints as well as mittens over his hands. When I awake him, he is not combative or agitative, but he is drooling, appears to have mask-like face as well as tremors and he cannot respond to my questions. He appears to be extremely confused and delirious. PAST PSYCHIATRIC HISTORY: Unknown. PAST SUBSTANCE ABUSE HISTORY: Similarly unknown. PAST MEDICAL HISTORY: Significant for sepsis due to gram-negative UTI, aspiration pneumonia, hyponatremia, electrolyte abnormality, delirium, as well as past history of Lewy body dementia, hepatitis C, HIV, coronary artery disease , stroke, hypertension, hypertriglyceridemia, hypothyroidism. CURRENT MEDICATIONS: Include, 1. Sinemet. 2. Rivastigmine patch. 3. Amlodipine. 4. Azithromycin. 5. Baclofen. 6. Omeprazole. 7. Levothyroxine. 8. Aspirin. 9. Gabapentin 300 t.i.d. 10. Isentress b.i.d. 11. Truvada. 12. Heparin. 13. Morphine. 14. Zosyn. 15. Ceftriaxone. 16. Trazodone 25 mg q.h.s. 17. Lorazepam 0.25 mg every 6 hours as needed for agitation. FAMILY HISTORY: Unobtainable. SOCIAL HISTORY: Similarly unobtainable. MENTAL STATUS EXAM: The patient is an aging -[place] male, who is lying in bed, slightly propped up on a pillow. He is somewhat disheveled, in a set of patient gowns and I see that he has protective mittens on as well as some restraints on his upper extremities to the side of the bed. He is hypersalivating, tilted to the left, not able to make much eye contact. His speech consists of only guttural, unintelligible utterances. Mood appears to be anxious with an anxious affect. Thought process is disorganized. Thought content is impoverished. He is unable to respond in terms of whether he has suicidal or homicidal thoughts. Similarly, he is not able to say whether he has auditory or visual hallucinations. Insight and judgment would appear to be markedly impaired. Cognitively, he is awake, but lethargic and confused. 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 Hawkins II: Deferred. IMPRESSION: The patient is a 73-year-old single, -[place] male, who is a resident of the [facility], who has an extremely complicated past medical history of several cardiovascular illnesses as well as parkinsonism and Lewy body dementia, who presented with pneumonia as well as urinary tract infection and superimposed encephalopathy. The patient is complicated and that the antipsychotic medications we would typically employ to reduce his symptoms of combativeness and delirium may not be safe given the fact that he has dementia, parkinsonism, and elevated QTc. Nonetheless, I do agree with the interventions already suggested by the Neurology team. RECOMMENDATIONS TO THE PRIMARY TEAM: Psychiatry will go ahead and discontinue trazodone and start a trial of quetiapine 25 mg p.o. q.h.s. I think it is fine to use lorazepam in extremely low doses such as a 0.25 mg on a p.r.n. basis. I have already recommended to the primary team to increase his gabapentin from 300 to 400 mg t.i.d. in the hopes that this will slightly reduce his agitation. More or less, we agree with management already recommended by the Neurology team and Psychiatry will therefore be signing off, but can certainly be reconsulted in the event of any significant changes in the patient's presentation. Thank you for the consult. [id number]/[facility] #: [id number] [place]
[2018-07-13] MEDS: TPN* 24 HR with D10W 1000 ML BAG* 1,000 ML, Amino Acid Infusion 10%* 850 ML, Sterile Wa... IV SCH ×11 (18:19)
[2018-07-13] MEDS: cefTRIAXone(*) 1 GM in NS 0.9% 50 ML* 50 ML IVPB SCH (18:20)
--- NOTE | 2018-07-13 18:21 | PN ---
Subjective Date of Service: 07/13/18 Interval History: Pt seen and examined. Meds and labs reviewed. CC: N/A ROS: Pt unable to provide a reliable PHYSICAL EXAM: GEN APPEARANCE: Awake, not in acute distress, pt intermittently agitated HEENT: NC/AT, PERRLA, moist oral mucosa, (-) throat erythema NECK: Soft, supple, (-) cervical LAD, (-)JVD HEART: S1S2 WNL, RRR, No MRG CHEST: CTA, BL, GAE, No W/R/R ABD: Soft, ND/NT, NABS 4x Q EXT: No C/C/E SKIN: Warm to touch PSYCH: No active psychosis, hallucinations, depression, SI/HI Objective Active Medications: Acetaminophen (Tylenol Supp*) 650 mg MN Q6H PRN PRN Reason: FEVER/PAIN Last Admin: 07/08/18 05:02 Dose: 650 mg Amlodipine Besylate (Norvasc Tab*) 5 mg PO DAILY [facility] Last Admin: 07/13/18 13:12 Dose: Not Given Aspirin (Aspirin Ec Tab*) 81 mg PO DAILY [facility] Last Admin: 07/13/18 13:12 Dose: Not Given Baclofen (Lioresal Tab*) 10 mg PO BID [facility] Last Admin: 07/13/18 13:12 Dose: Not Given Carbidopa/Levodopa (Sinemet 25/100 Tab(*)) 2 tab PO TID [facility] Last Admin: 07/13/18 13:14 Dose: Not Given Docusate Sodium (Colace Cap*) 200 mg PO BID [facility] Last Admin: 07/13/18 13:13 Dose: Not Given Emtricitabine/Tenofovir (Truvada 200/300 Mg*) 1 tab PO QAM [facility]; Protocol Last Admin: 07/13/18 13:13 Dose: Not Given Fenofibrate (Tricor(Nf)) 145 mg PO QAM [facility]; Protocol Last Admin: 07/13/18 13:13 Dose: Not Given Gabapentin (Neurontin Cap(*)) 400 mg PO TID [facility] Last Admin: 07/13/18 13:14 Dose: Not Given Heparin Sodium (Porcine) (Heparin Vial(*)) 5,000 units SUBCUT Q12HR [facility] Last Admin: 07/13/18 13:13 Dose: Not Given Heparin Sodium (Porcine) (Heparin Flush Picc/Ml/Cvc(*)) 1 - 3 ml FLUSH 0600, 1800 [facility]; Protocol Hydralazine HCl (Apresoline Iv*) 10 mg IV SLOW PU Q6H PRN PRN Reason: BLOOD PRESSURE Last Admin: 07/13/18 03:31 Dose: 10 mg Hydralazine HCl (Apresoline Iv*) 5 mg IV SLOW PU Q6H PRN PRN Reason: BLOOD PRESSURE Ceftriaxone Sodium 1 gm/ (Sodium Chloride) 50 mls @ 200 mls/hr IVPB Q24H [facility] Last Admin: 07/12/18 18:14 Dose: 200 mls/hr Dextrose 1,000 ml/ Amino Acids 850 ml/ Sterile Water 150 ml/Fat Emulsion Intravenous 250 ml/ Potassium Chloride 50 meq/Potassium Phosphate 15 mmole/ Calcium Gluconate 15 meq/Magnesium Sulfate 10 meq/Multivitamins 10 ml/ Trace Metals 1 ml/ Nutrition ( Parenteral) 2,325.721 mls @ 96.958 mls/hr IV 1700 [facility] ; Protocol Dextrose (D5w 1000 Ml Bag*) 1,000 mls @ 75 mls/hr IV PER RATE [facility] Stop: 07/15/18 04:02 Magnesium Sulfate (Magnesium Sulfate 2 Gm Iv*) 2 gm in 50 mls @ 50 mls/hr IVPB ONCE ONE Stop: 07/13/18 20:59 Potassium Phosphate 15 mmole/ (Sodium Chloride) 255 mls @ 42.5 mls/hr IVPB ONCE ONE Stop: 07/13/18 23:59 Levothyroxine Sodium (Synthroid Tab*) 100 mcg PO 0600 [facility] Last Admin: 07/13/18 05:06 Dose: Not Given Lorazepam (Ativan Inj*) 0.25 mg IV PUSH Q6H PRN PRN Reason: AGITATION Last Admin: 07/12/18 16:32 Dose: 0.25 mg Lorazepam (Ativan Inj*) 0.25 mg IM Q6H PRN PRN Reason: ANXIETY Last Admin: 07/13/18 15:39 Dose: 0.25 mg Melatonin (Melatonin) 3 mg PO BEDTIME PRN; Protocol PRN Reason: Sleep Morphine Sulfate (Morphine Inj ((Syringe))*) 2 mg IV Q3H PRN PRN Reason: SOB/air hunger Last Admin: 07/09/18 12:18 Dose: 2 mg Omeprazole (Prilosec Cap*) 20 mg PO DAILY@0600 [facility] Last Admin: 07/13/18 05:06 Dose: Not Given Ondansetron HCl (Zofran Odt Tab*) 4 mg PO Q6H PRN PRN Reason: n/v Polyethylene Glycol/Electrolytes (Miralax*) 17 gm PO DAILY [facility] Last Admin: 07/13/18 13:13 Dose: Not Given Quetiapine Fumarate (Seroquel Tab*) 25 mg PO BEDTIME [facility] Raltegravir (Isentress*) 400 mg PO BID [facility]; Protocol Last Admin: 07/13/18 13:13 Dose: Not Given Senna (Senokot Tab*) 2 tab PO BID [facility] Last Admin: 07/13/18 13:13 Dose: Not Given Vital Signs - 8 hr 07/13/18 07/13/18 07/13/18 14:32 15:39 16:18 Respiratory 18 24 26 Rate 07/13/18 18:11 Respiratory 18 Rate Oxygen Devices in Use Now: Nasal Cannula - Nutrition: Malnutrition Diagnosis/Plan Malnutrition Assessment by Registered Dietitian: Malnutrition Assessment Clinical Characteristics Acute,Severe Malnutrition Assessment: - Moderate temporal muscle wasting Criteria - < 50% estimated energy expenditure for at least 5 days Malnutrition Assessment: - Will continue to send Ensure Enlive daily @ B Interventions - 350 kcals, 20 grams of protein per serving - DIRECTOR PATIENT to work w/ pt on advancing diet texture ( to pt's liking) via. frequent feeding trials - PPN to begin tonight (07/13) Malnutrition Assessment: Goals 1. Adequate nutrition to replete lean body mass and maintain hydration status w/o promoting wt loss Result Diagrams: 07/13/18 04:58 07/13/18 04:58 Microbiology and Other Data: Microbiology 07/07/18 09:17 Urine Culture - Preliminary Urine Proteus Mirabilis 07/07/18 04:10 Aerobic Blood Culture - Preliminary Blood Venous Proteus Mirabilis Anaerobic Blood Culture - Preliminary Proteus Mirabilis 07/07/18 05:05 Aerobic Blood Culture - Preliminary Blood Venous Proteus Mirabilis Anaerobic Blood Culture - Preliminary Proteus Mirabilis 07/07/18 08:30 Aerobic Blood Culture - Preliminary Blood Venous No Growth Day 1 Anaerobic Blood Culture - Preliminary No Growth Day 1 07/07/18 09:17 Legionella Urinary Antigen - Final Urine Negative Legionella Antigen Streptococcus pneumoniae Ag Screen - Final Negative S. pneumo Antigen 07/07/18 10:00 Nasal Screen MRSA (PCR) - Final Nasal Mrsa Not Detected Assess/Plan/Problems-Billing . Assessment: 73 yo man with LLL S. Pneumo pneumonia and resultant severe sepsis - Patient Problems (1) Delirium Current Visit: Yes Status: Acute Code(s): R41.0 - DISORIENTATION, UNSPECIFIED SNOMED Code(s): 1836379 Comment: -Likely due to above, however, pt does have history of CVA in the past and may have some component of vascular dementia and/or vascular mild cognitive deficit and continues to refuse any PO meds -The above suspicion was confirmed with an MRI done yesterday and pt appears to have had a small frontal lobe infarct, left -Appreciate Dr. Quiñonez input -Will D/C Quetiapine and hold off on any antipsychotics given QTc >500 ms -Continue PRN BZDs -Increase Gabapentin -D/W Dr. Talavera and appreciate his input---consider Zyprexa Zydis if improved QTc at low dose of 2.5 mg SL q6H PRN (2) CVA (cerebral vascular accident) Current Visit: Yes Status: Acute Code(s): I63.9 - CEREBRAL INFARCTION, UNSPECIFIED SNOMED Code(s): 380410802 Comment: -Continue ASA -Pt has both acute small infarct as described above and history of CVA -Consider adding statins when pt's delirium subsides (3) Hypernatremia Current Visit: Yes Status: Acute Code(s): E87.0 - HYPEROSMOLALITY AND HYPERNATREMIA SNOMED Code(s): 35499328 Comment: -Continue D5W and recheck at 10 PM -Start pt on PPN via PICC line given pts agitation causes him to lose IV access (pt often refuses PO meds and has not eaten in 2 days) -Decrease rate of D5W to 75 cc/hr with PPN (4) Sepsis due to gram-negative UTI Current Visit: Yes Status: Acute Code(s): A41.50 - GRAM-NEGATIVE SEPSIS, UNSPECIFIED; N39.0 - URINARY TRACT INFECTION, SITE NOT SPECIFIED SNOMED Code(s ): 099854519 Comment: -Sepsis likely due to UTI --most likely source is prostatitis and PNA may have been due to aspiration -Continue Rocephin per sensitivity data of P. mirabilis on blood cultures, Abx day #04/22 -Repeat LA is normal at 1.7 -(-)Legionella and S. pneumoniae urine Ag -Will await any further ID input (5) Aspiration pneumonia Current Visit: Yes Status: Acute Code(s): J69.0 - PNEUMONITIS DUE TO INHALATION OF FOOD AND VOMIT SNOMED Code(s): 274009471 Comment: -D/Cd Zosyn -As above (6) Electrolyte abnormality Current Visit: Yes Status: Acute Code(s): E87.8 - OTH DISORDERS OF ELECTROLYTE AND FLUID BALANCE, NEC SNOMED Code(s): 604265544 Comment: -Will replenish both potassium and phosphate levels---recheck at 1800 for any additional needs (7) Human immunodeficiency virus Current Visit: No Status: Chronic Comment: -Continue Tenofovir/Emtricitab +Raltegravir (8) HCV (hepatitis C virus) Current Visit: Yes Status: Acute Comment: -Defer with ID and/or PCP as outpt (9) CAD (coronary artery disease) Current Visit: No Status: Chronic Code(s): I25.10 - ATHSCL HEART DISEASE OF [place] CORONARY ARTERY W/O ANG PCTRS SNOMED Code(s): 43269317 Comment: #with CVA, hx of: -Continue ASA (10) Parkinsonism Current Visit: Yes Status: Acute Code(s): G20 - PARKINSON'S DISEASE SNOMED Code(s): 46936884 Comment: -Continue Amantadine and Sinemet (11) Hypertriglyceridemia Current Visit: Yes Status: Acute Code(s): E78.1 - PURE HYPERGLYCERIDEMIA SNOMED Code(s): 157215655 Comment: -Continue Fenofibrate (12) Hypothyroidism Current Visit: Yes Status: Acute Code(s): E03.9 - HYPOTHYROIDISM, UNSPECIFIED SNOMED Code(s): 89001076 Comment: -Continue Levothyroxine -Will obtain TSH and Ft4 (13) DVT prophylaxis Current Visit: No Status: Acute Priority: Medium Onset Date: 03/25/15 Code(s): HBO2717 - SNOMED Code(s): 396618778 Comment: -Will change Heparin SQ frequency to q12H Status and Disposition: -D/C back to [facility] when ready
[2018-07-13] MEDS: D5W 1000 ML BAG* 1,000 ML IV SCH (18:41)
[2018-07-13] MEDS ORDERED: QUEtiapine TAB* 25 MG PO SCH (21:00)
[2018-07-13] MEDS: Docusate LIQ* 100 MG/10 ML UDC PO SCH (21:37)
--- NOTE | 2018-07-13 21:53 | CONS ---
NEUROLOGY FOLLOWUP NOTE: DATE OF FOLLOWUP: 07/13/18 LOCATION: Inpatient room 450. HOSPITALIST: Dr. Hernandez. INTERVAL HISTORY: Since yesterday, Mr. Amaro remains extremely agitated and delirious. He is biting staff and would not take anything by mouth. I spoke with Dr. Talavera, who consulted on him earlier today as well. He is not taking any of his pill medications. His EKG was repeated today and his QT corrected is up over 500 again. He has been getting small doses of intravenous lorazepam on a p.r.n. basis. I did not examine Mr. Amaro today. IMPRESSION: Agitated delirium in a patient with dementia and parkinsonism, possibly diffuse Lewy body disease. Treatment is extremely problematic. Neuroleptics which would be typically used could cause extreme sedation in a patient with Lewy body disease and his QT is prolonged. on a trial of low -dose Seroquel if we could get in him in spite of the risk because of his severe delirium. I do not have any other recommendations at this point in time. [id number]/[facility] #: [id number] [facility]
[2018-07-14] MEDS: Omeprazole CAP* 20 MG PO SCH (06:20)
[2018-07-14] MEDS: Levothyroxine TAB* 100 MCG TAB PO SCH (06:20)
[2018-07-14 06:56] LABS: ABS Basophils 0.1 10^3/ul (0-0.2); ABS Eosinophils 0.2 10^3/ul (0-0.6); ABS Lymphocytes 1.3 10^3/ul (1.0-4.8); ABS Monocytes 0.6 10^3/ul (0-0.8); ABS Neutrophils 7.4 10^3/ul (1.5-7.7); ABS Nucleated RBC 0 10^3/ul; Eosinophil % 1.8 % (0-6); Hematocrit 31 % (42-52); Hemoglobin 10.4 g/dl (14.0-18.0); Lymphocyte % 13.3 % (25-47); Mean Corpuscular HGB Conc 34 g/dl (31-36); Mean Corpuscular Hemoglobin 32 pg (27-31); Mean Corpuscular Volume 94 fL (80-94); Mean Platelet Volume 10.4 um3 (7.4-10.4); Nucleated Red Blood Cells % 0.3; Platelet Count 252 10^3/ul (150-450); Red Blood Count 3.31 10^6/ul (4.00-5.40); Red Cell Distribution Width 15 % (10.5-15); White Blood Count 9.5 10^3/ul (3.5-10.8)
[2018-07-14 07:17] LABS: EGFR Non-African American 48.6 (>60)
[2018-07-14] MEDS: amLODIPine TAB* 5 MG PO SCH (11:28)
[2018-07-14] MEDS: Aspirin EC TAB* 81 MG TAB.EC PO SCH (11:28)
[2018-07-14] MEDS: Gabapentin CAP(*) 400 MG PO SCH (11:29)
[2018-07-14] MEDS: Polyethylene Glycol 3350* 17 GM PACKET PO SCH (11:29)
[2018-07-14] MEDS: CMC:Fenofibrate(NF) 145 MG TAB PO SCH (11:29)
[2018-07-14] MEDS: Heparin VIAL(*) 5000 UNITS/ML VIAL (FIVE THOUSAND) SUBCUT SCH ×2 (11:29→21:46)
[2018-07-14] MEDS: Docusate LIQ* 100 MG/10 ML UDC PO SCH (11:29)
[2018-07-14] MEDS: Baclofen TAB* 10 MG PO SCH (11:29)
[2018-07-14] MEDS: Carbidopa/Levodop 25/100 MG TAB(*) PO SCH ×4 (11:29→21:46)
[2018-07-14] MEDS: Senna TAB PO SCH (11:30)
[2018-07-14] MEDS: Tenofovir/Emtricitab 200/300 * TAB PO SCH (11:30)
[2018-07-14] MEDS: Raltegravir* 400 MG TAB PO SCH ×2 (11:30→21:46)
[2018-07-14] MEDS: Levothyroxine INJ* 100 MCG/5 ML VIAL IV SCH (12:11)
[2018-07-14] MEDS: D5W 1000 ML BAG* 1,000 ML IV SCH (12:17)
[2018-07-14] MEDS ORDERED: TPN* 24 HR with D10W 1000 ML BAG* 1,000 ML, Amino Acid Infusion 10%* 850 ML, Sterile Wa... IV SCH ×11 (13:33)
[2018-07-14] MEDS ORDERED: hydrALAZINE IV* 20 MG/ML VIAL IV SLOW PU PRN (13:58)
--- NOTE | 2018-07-14 14:10 | PN ---
Subjective Date of Service: 07/14/18 Interval History: Patient likely not able to make his needs known. Objective Active Medications: Acetaminophen (Tylenol Supp*) 650 mg NC Q6H PRN PRN Reason: FEVER/PAIN Last Admin: 07/08/18 05:02 Dose: 650 mg Carbidopa/Levodopa (Sinemet 25/100 Tab(*)) 2 tab PO TID [facility] Last Admin: 07/14/18 13:13 Dose: Not Given Emtricitabine/Tenofovir (Truvada 200/300 Mg*) 1 tab PO QAM [facility]; Protocol Last Admin: 07/14/18 11:30 Dose: Not Given Heparin Sodium (Porcine) (Heparin Vial(*)) 5,000 units SUBCUT Q12HR [facility] Last Admin: 07/14/18 11:29 Dose: Not Given Heparin Sodium (Porcine) (Heparin Flush Picc/Ml/Cvc(*)) 1 - 3 ml FLUSH 0600, 1800 [facility]; Protocol Last Admin: 07/14/18 06:20 Dose: 1 ml Hydralazine HCl (Apresoline Iv*) 5 mg IV SLOW PU Q6H PRN PRN Reason: BLOOD PRESSURE Ceftriaxone Sodium 1 gm/ (Sodium Chloride) 50 mls @ 200 mls/hr IVPB Q24H [facility] Last Admin: 07/13/18 18:20 Dose: 200 mls/hr Dextrose 1,000 ml/ Amino Acids 850 ml/ Sterile Water 150 ml/Fat Emulsion Intravenous 250 ml/ Potassium Chloride 50 meq/Potassium Phosphate 15 mmole/ Calcium Gluconate 15 meq/Magnesium Sulfate 10 meq/Multivitamins 10 ml/ Trace Metals 1 ml/ Nutrition ( Parenteral) 2,325.721 mls @ 96.958 mls/hr IV 1700 [facility] ; Protocol Stop: 07/14/18 16:59 Last Admin: 07/13/18 18:19 Dose: 96.958 mls/hr Dextrose (D5w 1000 Ml Bag*) 1,000 mls @ 75 mls/hr IV PER RATE [facility] Stop: 07/15/18 04:02 Last Admin: 07/14/18 12:17 Dose: 75 mls/hr Dextrose 1,000 ml/ Amino Acids 850 ml/ Sterile Water 150 ml/Fat Emulsion Intravenous 250 ml/ Potassium Chloride 50 meq/Potassium Phosphate 15 mmole/ Calcium Gluconate 15 meq/Magnesium Sulfate 5 meq/Multivitamins 10 ml/ Trace Metals 1 ml/ Nutrition ( Parenteral) 2,324.4895 mls @ 96.906 mls/hr IV Q24H [facility] ; Protocol Levothyroxine Sodium (Synthroid Inj*) 50 mcg IV 0600 [facility] Last Admin: 07/14/18 12:11 Dose: 50 mcg Lorazepam (Ativan Inj*) 0.25 mg IV PUSH Q6H PRN PRN Reason: AGITATION Last Admin: 07/12/18 16:32 Dose: 0.25 mg Lorazepam (Ativan Inj*) 0.25 mg IM Q6H PRN PRN Reason: ANXIETY Last Admin: 07/13/18 15:39 Dose: 0.25 mg Ondansetron HCl (Zofran Odt Tab*) 4 mg PO Q6H PRN PRN Reason: n/v Raltegravir (Isentress*) 400 mg PO BID [facility]; Protocol Last Admin: 07/14/18 11:30 Dose: Not Given Vital Signs - 8 hr 07/14/18 07/14/18 08:00 08:35 Temperature 98.5 F Pulse Rate 83 Respiratory 18 20 Rate Blood Pressure 150/89 (mmHg) Oxygen Devices in Use Now: Nasal Cannula Appearance: Lethargic, eyes closed at first, partly up in bed. Continuous mouth movements during my visit. Eyes: No Scleral Icterus Neck: NL Appearance and Movements; NL JVP, No Thyroid Enlargement, Masses Respiratory: Symmetrical Chest Expansion and Respiratory Effort, Clear to Auscultation, Clear to Percussion Cardiovascular: NL Sounds; No Murmurs; No JVD, RRR, No Edema, - Extremities: No Edema, No Clubbing, Cyanosis, - Skin: No Rash or Ulcers, No Nodules or Sclerosis, - Neurological: - - Continuous mouth movements. He did not respond to my questions. - Nutrition: Malnutrition Diagnosis/Plan Malnutrition Assessment by Registered Dietitian: Malnutrition Assessment Clinical Characteristics Acute,Severe Malnutrition Assessment: - Moderate temporal muscle wasting Criteria - < 50% estimated energy expenditure for at least 5 days Malnutrition Assessment: - Will continue to send Ensure Enlive daily @ B Interventions - 350 kcals, 20 grams of protein per serving - CREDIT BALANCE SPECIALIST to work w/ pt on advancing diet texture ( to pt's liking) via. frequent feeding trials - PPN to begin tonight (07/13) Malnutrition Assessment: Goals 1. Adequate nutrition to replete lean body mass and maintain hydration status w/o promoting wt loss Result Diagrams: 07/14/18 06:30 07/14/18 06:30 Microbiology and Other Data: Microbiology 07/07/18 09:17 Urine Culture - Preliminary Urine Proteus Mirabilis 07/07/18 04:10 Aerobic Blood Culture - Preliminary Blood Venous Proteus Mirabilis Anaerobic Blood Culture - Preliminary Proteus Mirabilis 07/07/18 05:05 Aerobic Blood Culture - Preliminary Blood Venous Proteus Mirabilis Anaerobic Blood Culture - Preliminary Proteus Mirabilis 07/07/18 08:30 Aerobic Blood Culture - Preliminary Blood Venous No Growth Day 1 Anaerobic Blood Culture - Preliminary No Growth Day 1 07/07/18 09:17 Legionella Urinary Antigen - Final Urine Negative Legionella Antigen Streptococcus pneumoniae Ag Screen - Final Negative S. pneumo Antigen 07/07/18 10:00 Nasal Screen MRSA (PCR) - Final Nasal Mrsa Not Detected Assess/Plan/Problems-Billing . Assessment: 73 yo man with LLL S. Pneumo pneumonia and resultant severe sepsis - Patient Problems (1) Delirium Current Visit: Yes Status: Acute Code(s): R41.0 - DISORIENTATION, UNSPECIFIED SNOMED Code(s): 7211060 Comment: In part related to L frontal CVA suggested by MRI. Pt does have history of CVA in the past and may have some component of vascular dementia. -Will D/C Quetiapine and hold off on any antipsychotics given QTc >500 ms -Continue PRN BZDs -D/W Dr. Talavera and appreciate his input---consider Zyprexa Zydis if improved QTc at low dose of 2.5 mg SL q6H PRN (2) Swallowing disorder Current Visit: Yes Status: Acute Code(s): R13.10 - DYSPHAGIA, UNSPECIFIED SNOMED Code(s): 05594683 Comment: Choking on food today. All meds except carbidopa/Ldopa and anti- retrovirals d/c'd, IV levothyroxine ordered. (3) Hypernatremia Current Visit: Yes Status: Acute Code(s): E87.0 - HYPEROSMOLALITY AND HYPERNATREMIA SNOMED Code(s): 11796321 Comment: Continue D5W and recheck 07/15 Continue PPN via PICC line. (4) Hypothyroidism Current Visit: Yes Status: Acute Code(s): E03.9 - HYPOTHYROIDISM, UNSPECIFIED SNOMED Code(s): 66093126 Comment: Levothyroxine IV started 07/14 TSH 6.09 07/11, could reflect incomplete compliance at home, would recheck in about 2 weeks. (5) Human immunodeficiency virus Current Visit: No Status: Chronic Comment: Continue Tenofovir/Emtricitab +Raltegravir if able to swallow. CD4 count 403, HIV RNA < 20 08/2017. (6) HCV (hepatitis C virus) Current Visit: Yes Status: Acute Comment: -Defer with ID and/or PCP as outpt (7) Parkinson disease Current Visit: No Status: Chronic Code(s): G20 - PARKINSON'S DISEASE SNOMED Code(s): 74402204 Comment: COntinue Ldopa/carbidopa if able to swallow. Status and Disposition: -D/C back to [facility] when ready
[2018-07-14] MEDS: TPN* 24 HR with D10W 1000 ML BAG* 1,000 ML, Amino Acid Infusion 10%* 850 ML, Sterile Wa... IV SCH ×22 (17:06→17:30)
[2018-07-14] MEDS: cefTRIAXone(*) 1 GM in NS 0.9% 50 ML* 50 ML IVPB SCH (17:13)
[2018-07-14] MEDS: LORazepam INJ* 2 MG/ML 1 ML VIAL IV PUSH PRN (22:01)
[2018-07-14] MEDS: Acetaminophen SUPP* 650 MG SUPP PR PRN (22:14)
[2018-07-15] MEDS: Levothyroxine INJ* 100 MCG/5 ML VIAL IV SCH (06:10)
[2018-07-15] MEDS: Acetaminophen SUPP* 650 MG SUPP PR PRN ×2 (06:10→22:02)
[2018-07-15] MEDS: LORazepam INJ* 2 MG/ML 1 ML VIAL IV PUSH PRN ×2 (06:10→07:38)
[2018-07-15 07:15] LABS: EGFR Non-African American 62.6 (>60)
[2018-07-15] MEDS: Raltegravir* 400 MG TAB PO SCH ×2 (09:09→20:08)
[2018-07-15] MEDS: Tenofovir/Emtricitab 200/300 * TAB PO SCH (09:09)
[2018-07-15] MEDS: Carbidopa/Levodop 25/100 MG TAB(*) PO SCH ×3 (09:09→20:08)
[2018-07-15] MEDS: Heparin VIAL(*) 5000 UNITS/ML VIAL (FIVE THOUSAND) SUBCUT SCH ×2 (09:15→20:08)
--- NOTE | 2018-07-15 11:25 | PN ---
Subjective Date of Service: 07/15/18 Interval History: Patient not able to make his needs known. Objective Active Medications: Acetaminophen (Tylenol Supp*) 650 mg VT Q6H PRN PRN Reason: FEVER/PAIN Last Admin: 07/15/18 06:10 Dose: 650 mg Carbidopa/Levodopa (Sinemet 25/100 Tab(*)) 2 tab PO TID [facility] Last Admin: 07/15/18 09:09 Dose: 2 tab Emtricitabine/Tenofovir (Truvada 200/300 Mg*) 1 tab PO QAM [facility]; Protocol Last Admin: 07/15/18 09:09 Dose: 1 tab Heparin Sodium (Porcine) (Heparin Vial(*)) 5,000 units SUBCUT Q12HR [facility] Last Admin: 07/15/18 09:15 Dose: 5,000 units Heparin Sodium (Porcine) (Heparin Flush Picc/Ml/Cvc(*)) 1 - 3 ml FLUSH 0600, 1800 [facility]; Protocol Last Admin: 07/15/18 07:34 Dose: 1 ml Hydralazine HCl (Apresoline Iv*) 5 mg IV SLOW PU Q6H PRN PRN Reason: BLOOD PRESSURE Ceftriaxone Sodium 1 gm/ (Sodium Chloride) 50 mls @ 200 mls/hr IVPB Q24H [facility] Last Admin: 07/14/18 17:13 Dose: 200 mls/hr Dextrose 1,000 ml/ Amino Acids 850 ml/ Sterile Water 150 ml/Fat Emulsion Intravenous 250 ml/ Potassium Chloride 50 meq/Potassium Phosphate 15 mmole/ Calcium Gluconate 15 meq/Magnesium Sulfate 5 meq/Multivitamins 10 ml/ Trace Metals 1 ml/ Nutrition ( Parenteral) 2,324.4895 mls @ 96.906 mls/hr IV Q24H [facility] ; Protocol Last Admin: 07/14/18 17:06 Dose: 96.906 mls/hr Levothyroxine Sodium (Synthroid Inj*) 50 mcg IV 0600 [facility] Last Admin: 07/15/18 06:10 Dose: 50 mcg Lorazepam (Ativan Inj*) 0.25 mg IV PUSH Q6H PRN PRN Reason: AGITATION Last Admin: 07/15/18 06:10 Dose: 0.25 mg Lorazepam (Ativan Inj*) 0.25 mg IM Q6H PRN PRN Reason: ANXIETY Last Admin: 07/13/18 15:39 Dose: 0.25 mg Ondansetron HCl (Zofran Odt Tab*) 4 mg PO Q6H PRN PRN Reason: n/v Raltegravir (Isentress*) 400 mg PO BID [facility]; Protocol Last Admin: 07/15/18 09:09 Dose: 400 mg Vital Signs - 8 hr 07/15/18 07/15/18 07/15/18 03:41 06:10 07:10 Temperature 98.3 F Pulse Rate 59 Respiratory 28 22 20 Rate Blood Pressure 155/83 (mmHg) O2 Sat by Pulse Oximetry 07/15/18 07/15/18 07:17 09:00 Temperature Pulse Rate 81 Respiratory 28 26 Rate Blood Pressure 133/81 (mmHg) O2 Sat by Pulse 92 Oximetry Oxygen Devices in Use Now: Nasal Cannula Appearance: Alert, partly up in bed. Neutral affect, looks comfortable. Eyes: No Scleral Icterus Extremities: No Edema, No Clubbing, Cyanosis, - Skin: No Rash or Ulcers, No Nodules or Sclerosis, - Neurological: - - Fair eye contact. No tremor. L facial droop. Non-verbal, no sign of comprehension. - Nutrition: Malnutrition Diagnosis/Plan Malnutrition Assessment by Registered Dietitian: Malnutrition Assessment Clinical Characteristics Acute,Severe Malnutrition Assessment: - Moderate temporal muscle wasting Criteria - < 50% estimated energy expenditure for at least 5 days Malnutrition Assessment: - Will continue to send Ensure Enlive daily @ B Interventions - 350 kcals, 20 grams of protein per serving - COMMUNITY WORKER to work w/ pt on advancing diet texture ( to pt's liking) via. frequent feeding trials - PPN to begin tonight (07/13) Malnutrition Assessment: Goals 1. Adequate nutrition to replete lean body mass and maintain hydration status w/o promoting wt loss Result Diagrams: 07/14/18 06:30 07/15/18 06:43 Microbiology and Other Data: Microbiology 07/07/18 09:17 Urine Culture - Preliminary Urine Proteus Mirabilis 07/07/18 04:10 Aerobic Blood Culture - Preliminary Blood Venous Proteus Mirabilis Anaerobic Blood Culture - Preliminary Proteus Mirabilis 07/07/18 05:05 Aerobic Blood Culture - Preliminary Blood Venous Proteus Mirabilis Anaerobic Blood Culture - Preliminary Proteus Mirabilis 07/07/18 08:30 Aerobic Blood Culture - Preliminary Blood Venous No Growth Day 1 Anaerobic Blood Culture - Preliminary No Growth Day 1 07/07/18 09:17 Legionella Urinary Antigen - Final Urine Negative Legionella Antigen Streptococcus pneumoniae Ag Screen - Final Negative S. pneumo Antigen 07/07/18 10:00 Nasal Screen MRSA (PCR) - Final Nasal Mrsa Not Detected Assess/Plan/Problems-Billing . Assessment: 73 yo man with LLL S. Pneumo pneumonia and resultant severe sepsis - Patient Problems (1) Delirium Current Visit: Yes Status: Acute Code(s): R41.0 - DISORIENTATION, UNSPECIFIED SNOMED Code(s): 0137241 Comment: In part related to L frontal CVA suggested by MRI. Pt does have history of CVA in the past and may have some component of vascular dementia. Hold off on any antipsychotics given QTc >500 ms -Continue PRN IV BZDs Consider Zyprexa Zydis 2.5 mg SL q6H PRN if improved QTc. (2) Swallowing disorder Current Visit: Yes Status: Acute Code(s): R13.10 - DYSPHAGIA, UNSPECIFIED SNOMED Code(s): 09153962 Comment: Choking on food today. All meds except carbidopa/Ldopa and anti- retrovirals d/c'd, IV levothyroxine ordered. (3) Hypernatremia Current Visit: Yes Status: Acute Code(s): E87.0 - HYPEROSMOLALITY AND HYPERNATREMIA SNOMED Code(s): 29586620 Comment: Resolved as of 07/15. Continue PPN via PICC line. (4) Hypothyroidism Current Visit: Yes Status: Acute Code(s): E03.9 - HYPOTHYROIDISM, UNSPECIFIED SNOMED Code(s): 74993841 Comment: Levothyroxine IV started 07/14 TSH 6.09 07/11, could reflect incomplete compliance at home, would recheck in about 2 weeks. (5) Human immunodeficiency virus Current Visit: No Status: Chronic Comment: Continue Tenofovir/Emtricitab +Raltegravir if able to swallow. CD4 count 403, HIV RNA < 20 08/2017. (6) HCV (hepatitis C virus) Current Visit: Yes Status: Acute Comment: -Defer with ID and/or PCP as outpt (7) Parkinson disease Current Visit: No Status: Chronic Code(s): G20 - PARKINSON'S DISEASE SNOMED Code(s): 06096590 Comment: COntinue Ldopa/carbidopa if able to swallow. Status and Disposition: -D/C back to [facility] when ready
[2018-07-15] MEDS: TPN* 24 HR with D10W 1000 ML BAG* 1,000 ML, Amino Acid Infusion 10%* 850 ML, Sterile Wa... IV SCH ×11 (17:45)
[2018-07-15] MEDS: cefTRIAXone(*) 1 GM in NS 0.9% 50 ML* 50 ML IVPB SCH (17:46)
--- NOTE | 2018-07-15 18:27 | PN ---
Progress Note - Progress Note Date of Service: 07/15/18 Note: I spoke with the patient's dil Louisdonnabarb Stephen about the patient's prognosis and the benefits of Hospice care. She and her Russ Stephen will meet with me Monday07/17/18 at 3:30 PM.
[2018-07-16] MEDS: Levothyroxine INJ* 100 MCG/5 ML VIAL IV SCH (05:53)
--- NOTE | 2018-07-16 09:00 | PN ---
Subjective Date of Service: 07/16/18 Interval History: Patient not able to make his needs known. Today he seems unhappy but could not communicate verbally at all--he only mumbles. Objective Active Medications: Acetaminophen (Tylenol Supp*) 650 mg NE Q6H PRN PRN Reason: FEVER/PAIN Last Admin: 07/15/18 22:02 Dose: 650 mg Carbidopa/Levodopa (Sinemet 25/100 Tab(*)) [address] [facility] Last Admin: 07/15/18 20:08 Dose: 2 tab Emtricitabine/Tenofovir (Truvada 200/300 Mg*) 1 tab PO QAM [facility]; Protocol Last Admin: 07/15/18 09:09 Dose: 1 tab Heparin Sodium (Porcine) (Heparin Vial(*)) 5,[address] [facility] Last Admin: 07/15/18 20:08 Dose: 5,000 units Heparin Sodium (Porcine) (Heparin Flush Picc/Ml/Cvc(*)) 1 - 3 ml FLUSH 0600, 1800 [facility]; Protocol Last Admin: 07/16/18 05:53 Dose: 1 ml Hydralazine HCl (Apresoline Iv*) 5 mg IV SLOW PU Q6H PRN PRN Reason: BLOOD PRESSURE Ceftriaxone Sodium 1 gm/ (Sodium Chloride) 50 mls @ 200 mls/hr IVPB Q24H [facility] Stop: 07/16/18 23:00 Last Admin: 07/15/18 17:46 Dose: 200 mls/hr Dextrose 1,000 ml/ Amino Acids 850 ml/ Sterile Water 150 ml/Fat Emulsion Intravenous 250 ml/ Potassium Chloride 50 meq/Potassium Phosphate 15 mmole/ Calcium Gluconate 15 meq/Magnesium Sulfate 5 meq/Multivitamins 10 ml/ Trace Metals 1 ml/ Nutrition ( Parenteral) 2,324.4895 mls @ 96.906 mls/hr IV Q24H [facility] ; Protocol Last Admin: 07/15/18 17:45 Dose: 96.906 mls/hr Levothyroxine Sodium (Synthroid Inj*) [address] [facility] Last Admin: 07/16/18 05:53 Dose: 50 mcg Lorazepam (Ativan Inj*) 0.25 mg IV PUSH Q6H PRN PRN Reason: AGITATION Last Admin: 07/15/18 06:10 Dose: 0.25 mg Lorazepam (Ativan Inj*) 0.25 mg IM Q6H PRN PRN Reason: ANXIETY Last Admin: 07/13/18 15:39 Dose: 0.25 mg Ondansetron HCl (Zofran Odt Tab*) 4 mg PO Q6H PRN PRN Reason: n/v Raltegravir (Isentress*) 400 mg PO BID [facility]; Protocol Last Admin: 07/15/18 20:08 Dose: 400 mg Vital Signs - 8 hr 07/16/18 03:06 Temperature 97.4 F Pulse Rate 62 Respiratory 20 Rate Blood Pressure 133/73 (mmHg) O2 Sat by Pulse 100 Oximetry Oxygen Devices in Use Now: Nasal Cannula Appearance: Alert, partly up in bed. Fair eye contact. Seems unhappy but not clearly in pain. Eyes: No Scleral Icterus Extremities: No Edema, No Clubbing, Cyanosis, - Skin: No Rash or Ulcers, No Nodules or Sclerosis, - Neurological: NL Sensation - Mumbles, no recognizable words. R hand tremor. - Nutrition: Malnutrition Diagnosis/Plan Malnutrition Assessment by Registered Dietitian: Malnutrition Assessment Clinical Characteristics Acute,Severe Malnutrition Assessment: - Moderate temporal muscle wasting Criteria - < 50% estimated energy expenditure for at least 5 days Malnutrition Assessment: - Will continue to send Ensure Enlive daily @ B Interventions - 350 kcals, 20 grams of protein per serving - BRAND AMBASSADOR to work w/ pt on advancing diet texture ( to pt's liking) via. frequent feeding trials - PPN to begin tonight (07/13) Malnutrition Assessment: Goals 1. Adequate nutrition to replete lean body mass and maintain hydration status w/o promoting wt loss Result Diagrams: 07/14/18 06:30 07/15/18 06:43 Microbiology and Other Data: Microbiology 07/07/18 09:17 Urine Culture - Preliminary Urine Proteus Mirabilis 07/07/18 04:10 Aerobic Blood Culture - Preliminary Blood Venous Proteus Mirabilis Anaerobic Blood Culture - Preliminary Proteus Mirabilis 07/07/18 05:05 Aerobic Blood Culture - Preliminary Blood Venous Proteus Mirabilis Anaerobic Blood Culture - Preliminary Proteus Mirabilis 07/07/18 08:30 Aerobic Blood Culture - Preliminary Blood Venous No Growth Day 1 Anaerobic Blood Culture - Preliminary No Growth Day 1 07/07/18 09:17 Legionella Urinary Antigen - Final Urine Negative Legionella Antigen Streptococcus pneumoniae Ag Screen - Final Negative S. pneumo Antigen 07/07/18 10:00 Nasal Screen MRSA (PCR) - Final Nasal Mrsa Not Detected Assess/Plan/Problems-Billing . Assessment: 73 yo man with LLL S. Pneumo pneumonia and resultant severe sepsis - Patient Problems (1) Delirium Current Visit: Yes Status: Acute Code(s): R41.0 - DISORIENTATION, UNSPECIFIED SNOMED Code(s): 9376545 Comment: In part related to L frontal CVA suggested by MRI. Pt does have history of CVA in the past and may have some component of vascular dementia. Hold off on any antipsychotics given QTc >500 ms -Continue PRN IV BZDs Consider Zyprexa Zydis 2.5 mg SL q6H PRN if improved QTc. (2) Swallowing disorder Current Visit: Yes Status: Acute Code(s): R13.10 - DYSPHAGIA, UNSPECIFIED SNOMED Code(s): 90013076 Comment: Choking on food noted. All meds except carbidopa/Ldopa and anti- retrovirals d/c'd, IV levothyroxine ordered. If family elects Hospice care will order comfort feeding. (3) Hypernatremia Current Visit: Yes Status: Acute Code(s): E87.0 - HYPEROSMOLALITY AND HYPERNATREMIA SNOMED Code(s): 81164578 Comment: Resolved as of 07/15. Continue PPN via PICC line until family conference 07/17 3:30 PM. (4) Hypothyroidism Current Visit: Yes Status: Acute Code(s): E03.9 - HYPOTHYROIDISM, UNSPECIFIED SNOMED Code(s): 45582043 Comment: Levothyroxine IV started 07/14 TSH 6.09 07/11, could reflect incomplete compliance at home, would recheck in about 2 weeks. (5) Human immunodeficiency virus Current Visit: No Status: Chronic Comment: Continue Tenofovir/Emtricitab +Raltegravir with small amount apple sauce. CD4 count 403, HIV RNA < 20 08/2017. (6) HCV (hepatitis C virus) Current Visit: Yes Status: Acute Comment: -Defer with ID and/or PCP as outpt (7) Parkinson disease Current Visit: No Status: Chronic Code(s): G20 - PARKINSON'S DISEASE SNOMED Code(s): 20299605 Comment: COntinue Ldopa/carbidopa if able to swallow. (8) Sepsis Current Visit: Yes Status: Acute Comment: Possible LLL pneumonia, P. mirabilis UTI, 02/16 blood C&S bottle grew P. mirabilis. Complete 7 days IV antibiotic tx 9/4 PM. Status and Disposition: -D/C back to [facility] when ready
[2018-07-16] MEDS: Morphine ORAL CONCENTRATE* 5 MG/0.25 ML ORAL.SYRIN SL PRN ×2 (09:26→15:16)
[2018-07-16] MEDS: Carbidopa/Levodop 25/100 MG TAB(*) PO SCH ×3 (09:27→20:59)
[2018-07-16] MEDS: Heparin VIAL(*) 5000 UNITS/ML VIAL (FIVE THOUSAND) SUBCUT SCH ×2 (09:39→20:59)
[2018-07-16] MEDS: Tenofovir/Emtricitab 200/300 * TAB PO SCH (09:39)
[2018-07-16] MEDS: Raltegravir* 400 MG TAB PO SCH ×2 (09:44→20:58)
[2018-07-16] MEDS: cefTRIAXone(*) 1 GM in NS 0.9% 50 ML* 50 ML IVPB SCH (17:35)
[2018-07-16] MEDS: TPN* 24 HR with D10W 1000 ML BAG* 1,000 ML, Amino Acid Infusion 10%* 850 ML, Sterile Wa... IV SCH ×11 (17:35)
[2018-07-17] MEDS: Morphine ORAL CONCENTRATE* 5 MG/0.25 ML ORAL.SYRIN SL PRN ×5 (00:20→14:58)
[2018-07-17] MEDS: Levothyroxine INJ* 100 MCG/5 ML VIAL IV SCH (05:07)
[2018-07-17] MEDS: Raltegravir* 400 MG TAB PO SCH (08:56)
[2018-07-17] MEDS: Tenofovir/Emtricitab 200/300 * TAB PO SCH (09:12)
[2018-07-17] MEDS: Carbidopa/Levodop 25/100 MG TAB(*) PO SCH ×2 (09:12→14:55)
[2018-07-17] MEDS: Heparin VIAL(*) 5000 UNITS/ML VIAL (FIVE THOUSAND) SUBCUT SCH (09:21)
[2018-07-17 15:36] VITALS: BP 124/70
[2018-07-17] MEDS ORDERED: LORazepam TAB(*) 0.5 MG PO PRN (15:56)
[2018-07-17] MEDS ORDERED: Atropine 1% (ORAL/SL)* 15 ML BTL SL PRN (15:57)
[2018-07-17] MEDS ORDERED: LORazepam TAB(*) 0.5 MG SL PRN (16:28)
[2018-07-17] MEDS ORDERED: TPN* 24 HR with D10W 1000 ML BAG* 1,000 ML, Amino Acid Infusion 10%* 850 ML, Sterile Wa... IV SCH ×11 (17:00)
--- NOTE | 2018-07-17 17:46 | TRS ---
CC: Dr. Russell Beasley; [facility] * TRANSFER SUMMARY: DATE OF ADMISSION: DATE OF TRANSFER: 07/17/18 HOSPITAL COURSE: This 73-year-old man presented with confusion, altered mental status, and fever. He really could not give any kind of history. He was felt to have sepsis and left lower lobe pneumonia. He was treated with azithromycin and ceftriaxone. His antiretroviral medication was continued. His fever largely resolved. He did have a temperature of 100.2 on 07/16/18, but this seemed to be isolated. His white blood cell count on admission was 13.2, on 07/14/18, it was 9.5. Clinically, he seemed fairly stable. Blood cultures grew out 4/6 bottles Proteus mirabilis; this may be related to his pneumonia. Urine also grew out Proteus mirabilis and this could have been the source. Overall, the patient's clinical condition was quite poor. He was not able to eat adequately. He remained completely disoriented, basically almost nonverbal. He was, at times, agitated and struck out. He could not make his needs known at all. I spoke with the son, Russ Stephen, and his , who have known and cared for him for many years. They agreed on hospice care. He did get TPN for a period of time, but this is being discontinued. FINAL DIAGNOSES: 1. Delirium and altered mental status due to combination of cerebrovascular accident and dementia. 2. Hypernatremia, resolved. 3. Hypothyroidism. 4. Human immunodeficiency virus infection. 5. History of hepatitis C. 6. Parkinson's disease. DISCHARGE MEDICATIONS: 1. Atropine 1% two drops sublingual every 2 hours p.r.n. 2. Lorazepam 0.5 mg every 2 hours sublingual p.r.n. 3. Morphine oral concentrate 2.5 mg sublingual every 30 minutes p.r.n. CONDITION ON DISCHARGE: Guarded. DISPOSITION ON DISCHARGE: Transfer and return to [facility]. [id number]/[facility] #[facility] [id number] [facility]
== END 2018-07-17 17:13 | DRG 871 ==
LOC: ED 02:54 → MED 05:44 → ICU 07:39 → MEDTELE 07-08 09:15
PROVIDERS: ADMIT Hospitalist; ATTEND Internal Medicine
PROC: 4A00X4Z Measurement of Central Nervous Electrical Activity, External Approach (ICD-10-PCS; principal; 2018-07-10)
DX: A41.89 Other specified sepsis (principal); I63.9 Cerebral infarction, unspecified; G93.40 Encephalopathy, unspecified; J69.0 Pneumonitis due to inhalation of food and vomit; J15.6 Pneumonia due to other Gram-negative bacteria; N17.9 Acute kidney failure, unspecified; F05 Delirium due to known physiological condition; N39.0 Urinary tract infection, site not specified; E87.0 Hyperosmolality and hypernatremia; R65.20 Severe sepsis without septic shock; F32.9 Major depressive disorder, single episode, unspecified; Z21 Asymptomatic human immunodeficiency virus [HIV] infection status; I10 Essential (primary) hypertension; M19.90 Unspecified osteoarthritis, unspecified site; E66.3 Overweight; H91.90 Unspecified hearing loss, unspecified ear; G20 Parkinson's disease; F02.80 Dementia in other diseases classified elsewhere, unspecified severity, without behavioral disturbance, psychotic disturbance, mood disturbance, and anxiety; I25.10 Atherosclerotic heart disease of native coronary artery without angina pectoris; E78.1 Pure hyperglyceridemia; E03.9 Hypothyroidism, unspecified; K27.9 Peptic ulcer, site unspecified, unspecified as acute or chronic, without hemorrhage or perforation; R40.2362 Coma scale, best motor response, obeys commands, at arrival to emergency department; R40.2132 Coma scale, eyes open, to sound, at arrival to emergency department; R40.2242 Coma scale, best verbal response, confused conversation, at arrival to emergency department; B96.4 Proteus (mirabilis) (morganii) as the cause of diseases classified elsewhere; R13.10 Dysphagia, unspecified; I69.392 Facial weakness following cerebral infarction; Z88.8 Allergy status to other drugs, medicaments and biological substances; Z97.4 Presence of external hearing-aid; Z87.891 Personal history of nicotine dependence; Z68.30 Body mass index [BMI] 30.0-30.9, adult
CPT/HCPCS: 36415; 36600; 70450; 70551; 71045; 80048; 80053; 80202; 81003; 82140; 82565; 82803; 83605; 83735; 84100; 84145; 84300; 84439; 84443; 84478; 84484; 84520; 85025; 85610; 85730; 87040; 87077; 87086; 87184; 87186; 87205; 87641; 87899; 93005; 95816; 99285; A9270-GY; C1751; G8978-GP-CM; G8979-GP-CM; G8980-GP-CM; J0360; J0456; J0610; J0696; J1644; J1940; J2060; J2270; J2543; J3370; J3475; J3480; J3490